=== PATIENT | female | born 1950 | race Caucasian/White ===

== ENCOUNTER 2016-09-27 09:06 | Emergency (ER) | payer OTHER ==
[~2016-09-27] VITALS: Ht 152.4 cm; Wt 71.6 kg
[~2016-09-27 09:06] MED LIST: ALBU1AER9 INH; ASPI81TA28 PO; BIOT5000 PO; CALC-354 PO; CHOL100010 PO; FEXO1TAB49 PO; HYDR-5688 PO; MONT1TAB3 PO; MULT-506 PO; NIAC500T11 PO; POTA10CA28 PO; SPIR1TAB71 PO
[2016-09-27 09:10] VITALS: TEMP 36.6; Ht 152.4 cm; Wt 71.6 kg
[2016-09-27] MEDS ORDERED: BACL10TA PO (09:29)
[2016-09-27] MEDS ORDERED: DOXY20TA3 PO (09:29)
[2016-09-27] MEDS ORDERED: MELO15TA4 PO (09:29)
--- NOTE | 2016-09-27 10:37 | EMERGENCY ROOM VISIT NOTE ---
History Report prepared by Oliverio: Italo Ovalles Under the Supervision of: Dr. Eli Byrd M.D. First contact with patient: 10:23 Chief Complaint: BACK PAIN Stated Complaint: BACK SPASMS History of Present Illness The patient is a 66 year old female who presents to the Emergency Room with complaints of worsening back pain that started this morning. The patient complains of severe back spasms that started when she woke up this morning. She notes that the Morphine given to her by the medics helped relieve some of her pain, but she is still experiencing some discomfort. The patient has a history of chronic back pain and notes that she had a slight disk herniation a few years ago. The patient notes that she is able to ambulate but it causes her significant discomfort. The patient recently had shoulder surgery and a right hip bursitis. She attended physical therapy for her shoulder yesterday, but denies doing any activity that involved her back. She also had a cortisone shot two weeks ago for her hip bursitis which did not relieve her symptoms much. The patient denies numbness, weakness of either LE or loss of control of her bowels/ bladder. Source of History: patient Onset: this morning Position: back Symptom Intensity: severe Quality: other (spasms) Timing: worsening Modifying Factors (Worsening): movement (walking) Associated Symptoms: No numbness Note: Denies: loss of control of bowels or bladder Review of Systems See HPI for pertinent positives & negatives. A total of 10 systems reviewed and were otherwise negative. Past Medical & Surgical Medical Problems: (1) Asthma (2) Celiac Disease (3) Chest pain (4) Chronic Sinusitis Nos (5) Headache (6) Hyperlipidemia Nec/Nos (7) Hypertension Nos (8) Idiopathic Scoliosis (9) Iron Defic Anemia Nos (10) Lumbago (11) Osteoporosis Nos (12) Osteoporosis Nos Surgical Problems: (1) H/O: hysterectomy Family History No pertinent family history Social History Smoking Status: Never Smoker Alcohol Use: none Marital Status: Occupation Status: retired Current/Historical Medications Scheduled Aspirin (Aspirin Ec), 81 MG PO DAILY Baclofen (Lioresal), 10 MG PO PRN Biotin (Biotin/Maximum Strength), 1 TAB PO DAILY Calcium Carbonate-Cholecalcife (Caltrate 600+D), 1 TAB PO BID Doxycycline Hyclate (Doxycycline Hyclate), 20 MG PO BID Meloxicam (Meloxicam), 15 MG PO DAILY Montelukast Sodium (Singulair), 10 MG PO HS Multivitamin (Multivitamin), 1 TAB PO DAILY Niacin (Niacin), 500 MG PO DAILY Potassium Chloride (Micro-K Ext Rel), 20 MEQ PO BID Prednisone (Prednisone), 10 MG PO DAILY Spironolactone & Hydrochloroth (Spironolactone/Hydrochlor), 1 TAB PO DAILY Scheduled PRN Cyclobenzaprine Hcl (Flexeril), 5 MG PO TID PRN for Muscle Spasms Fexofenadine Hcl (Daisy Allergy), 1 TAB PO DAILY PRN for ALLERGIC REACTION Hydrocodone/Acetaminophen 5MG/325MG (Montgomery 5MG/325MG), 1 TABLET PO Q6 PRN for Pain Allergies Coded Allergies: Gluten (Verified Allergy, Unknown, GI SYMPTOMS/CELIAC'S DISEASE, 04/20/15) Latex1 -Allergic Contact Dermititis (Verified Allergy, Unknown, CONTACT DERMITITIS, 04/20/15) Penicillins (Verified Allergy, Unknown, RASH, 04/22/15) Sulfa Drugs (Verified Allergy, Unknown, RASH, 04/22/15) Physical Exam Vital Signs Date Time Temp Pulse Resp B/P Pulse Ox O2 Delivery O2 Flow Rate FiO2 09/27/16 15:14 72 18 132/74 92 09/27/16 14:13 74 16 126/69 92 Room Air 09/27/16 13:26 64 18 135/66 94 Room Air 09/27/16 12:05 61 09/27/16 12:03 61 16 116/63 96 Nasal Cannula 2.0 09/27/16 11:01 71 16 125/68 93 Room Air 09/27/16 09:10 36.6 67 20 146/67 98 Room Air Physical Exam Vital signs reviewed. General: Elderly, well-appearing, in no distress. HEENT: No scleral icterus, PERRLA, neck supple. Atraumatic. Cardiovascular: Regular rate and rhythm, no extra sounds. Pulmonary: Clear to auscultation bilaterally, normal work of breathing. Abdomen: Soft, nontender, nondistended, positive bowel sounds. Musculoskeletal: Atraumatic, no peripheral edema. Palpable spasm of lumbar paraspinous muscles. Pain with movement. No step off deformity of lumbar spine. Equal strength in bilateral lower extremities with positive straight leg raise. Neurologic: Patient awake alert and oriented x 3, full strength in all 4 extremities. Cranial nerves 2 through 12 grossly intact. DTR 2+ bilaterally Skin: Warm, dry, no rash Medical Decision & Procedures ER Provider Diagnostic Interpretation: X-ray results as stated below per interpretation by me and the radiologist: L-SPINE MIN 4 VIEWS ROUTINE CLINICAL HISTORY: lumbar back pain COMPARISON STUDY: Lumbar spine 03/05/2015. FINDINGS: Moderate levoscoliosis of the lumbar spine, unchanged. The sacrum appears intact. Moderate right hip osteoarthritis which is slightly progressed. Moderate to severe disc space narrowing at L2-L3 and L3-L4. There is mild disc space narrowing at L1-L2 and L4-L5. This remains unchanged. Moderate disc space narrowing at T12-L1 which has progressed. There are endplate osteophytes seen throughout the lumbar spine. Vertebral body heights are maintained. No fracture or subluxation. Moderate to severe facet osteoarthritis within the lower lumbar spine is also unchanged. IMPRESSION: 1. Moderate levoscoliosis, unchanged. 2. No fracture or subluxation. 3. Progression of the moderate degenerative disc disease at T12-L1. The remaining degenerative changes within the lumbar spine are not significantly changed as described above. Electronically signed by: Adilson Florence M.D. 09/27/2016 11:41 AM Dictated Date/Time: 09/27/2016 11:[address] ANGIOGRAM OF THE ABDOMEN AND PELVIS CLINICAL HISTORY: Low back pain. COMPARISON STUDY: Abdominal CT dated 03/05/2015. TECHNIQUE: Following the IV administration of 119 cc of Optiray 320, CT angiogram of the abdomen and pelvis was performed from the lung bases the proximal femora. Images are reviewed in the axial, sagittal, and coronal planes. 3-D MIPS images are created and assessed. IV contrast was administered without complication. The examination is degraded by streak artifact from the right arm which could not be elevated above the abdomen. CT DOSE: 660.53 mGy.cm FINDINGS: Lower chest: The heart is normal in size and without pericardial effusion. There is dependent atelectasis. No airspace consolidation or pleural effusion is seen. Liver: The contrast-enhanced liver is normal in size, contour, and attenuation. A 1.6 cm cyst is present in the right lobe. There is no intrahepatic or ductal dilatation. Gallbladder: Unremarkable. Spleen: Normal in size and attenuation noting heterogeneous arterial phase enhancement. Pancreas: There is moderate glandular atrophy of the pancreas. There is a 7 mm ovoid low-density lesion the pancreatic tail seen image #149. This is unchanged from 2015 and likely resent a small sidebranch IPMN. Adrenal glands: Unremarkable. Kidneys: The contrast enhanced kidneys demonstrate cortical atrophy and are without hydronephrosis. The kidneys enhance symmetrically. Abdominal aorta and iliac arteries: The abdominal aorta and iliac vessels are normal in caliber noting moderate atherosclerotic calcification. These vessels are widely patent. No dissection is seen. Major branches of the abdominal aorta: The celiac trunk and superior mesenteric arteries are widely patent. There is likely occlusion at the origin of the inferior mesenteric artery. The remainder of the vessel is patent, likely via retrograde flow. Hepatic arterial anatomy is conventional. The splenic artery is patent. There is a single left renal artery. There are 2 tiny accessory right renal arteries. There is moderate (approximately 50%) stenosis at the origin of the largest right renal artery. Bowel: The small bowel and colon are normal in course and caliber. There is mild to moderate colonic fecal retention. The appendix is well-visualized and normal. Peritoneum: There is no intraperitoneal free air or abdominal ascites. There is a small fat-containing umbilical hernia. Lymphadenopathy: None. Pelvic viscera: The bladder is decompressed and grossly unremarkable. A small focus of intraluminal gas is likely related to indentation. Uterus is surgically absent. No adnexal lesion is seen. Calcified pelvic phleboliths are identified. Skeletal structures: Skeletal structures are osteopenic. There is advanced lumbosacral spondylosis and scoliosis. No lytic or blastic lesions are seen. IMPRESSION: 1. The abdominal aorta is normal in course and caliber. No aneurysm or dissection is seen. 2. There is likely occlusion at the origin of the inferior mesenteric artery. The remainder of the vessel is patent, likely filling via retrograde flow. 3. There is approximately 50% stenosis at the origin of the largest right renal artery. 4. No acute infectious or inflammatory findings are seen in the abdomen or pelvis. 5. A small focus of gas is identified within the bladder lumen, likely related to instrumentation. Clinical correlation will be required. 6. Additional findings as above. Electronically signed by: David Roque M.D. 09/27/2016 2:32 PM Dictated Date/Time: 09/27/2016 2:18 PM Laboratory Results 09/27/16 11:05 Red Blood Count 4.03, Mean Corpuscular Volume 92.3, Mean Corpuscular Hemoglobin 32.3, Mean Corpuscular Hemoglobin Concent 34.9, Mean Platelet Volume 8.4, Neutrophils (%) (Auto) 79.2, Lymphocytes (%) (Auto) 13.0, Monocytes (%) (Auto) 6.4, Eosinophils (%) (Auto) 0.7, Basophils (%) (Auto) 0.5, Neutrophils # (Auto) 8.63, Lymphocytes # (Auto) 1.42, Monocytes # (Auto) 0.70, Eosinophils # (Auto) 0.08, Basophils # (Auto) 0.06 09/27/16 11:05 Test 09/27/16 11:05 09/27/16 13:25 White Blood Count 10.91 K/uL (4.8-10.8) Red Blood Count 4.03 M/uL (4.2-5.4) Hemoglobin 13.0 g/dL (12.0-16.0) Hematocrit 37.2 % (37-47) Mean Corpuscular Volume 92.3 fL (80-100) Mean Corpuscular Hemoglobin 32.3 pg (25-34) Mean Corpuscular Hemoglobin Concent 34.9 g/dl (32-36) Platelet Count 325 K/uL (130-400) Mean Platelet Volume 8.4 fL (7.4-10.4) Neutrophils (%) (Auto) 79.2 % Lymphocytes (%) (Auto) 13.0 % Monocytes (%) (Auto) 6.4 % Eosinophils (%) (Auto) 0.7 % Basophils (%) (Auto) 0.5 % Neutrophils # (Auto) 8.63 K/uL (1.4-6.5) Lymphocytes # (Auto) 1.42 K/uL (1.2-3.4) Monocytes # (Auto) 0.70 K/uL (0.11-0.59) Eosinophils # (Auto) 0.08 K/uL (0-0.5) Basophils # (Auto) 0.06 K/uL (0-0.2) RDW Standard Deviation 44.0 fL (36.4-46.3) RDW Coefficient of Variation 13.0 % (11.5-14.5) Immature Granulocyte % (Auto) 0.2 % Immature Granulocyte # (Auto) 0.02 K/uL (0.00-0.02) Anion Gap 11.0 mmol/L (3-11) Est Creatinine Clear Calc Drug Dose 71.0 ml/min Estimated GFR () 104.7 Estimated GFR (Non- 90.3 BUN/Creatinine Ratio 23.5 (10-20) Calcium Level 8.8 mg/dl (8.5-10.1) Magnesium Level 1.8 mg/dl (1.8-2.4) Total Bilirubin 0.4 mg/dl (0.2-1) Direct Bilirubin < 0.1 mg/dl (0-0.2) Aspartate Amino Transf (AST/SGOT) 11 U/L (15-37) Alanine Aminotransferase (ALT/SGPT) 23 U/L (12-78) Alkaline Phosphatase 81 U/L (45-117) Total Protein 6.7 gm/dl (6.4-8.2) Albumin 3.4 gm/dl (3.4-5.0) Lipase 170 U/L (73-393) Urine Color YELLOW Urine Appearance CLEAR (CLEAR) Urine pH 8.0 (4.5-7.5) Urine Specific Darby 1.013 (1.000-1.030) Urine Protein NEG (NEG) Urine Glucose (UA) NEG (NEG) Urine Ketones NEG (NEG) Urine Occult Blood NEG (NEG) Urine Nitrite POS (NEG) Urine Bilirubin NEG (NEG) Urine Urobilinogen NEG (NEG) Urine Leukocyte Esterase TRACE (NEG) Urine WBC (Auto) 1-5 /hpf (0-5) Urine RBC (Auto) 0-4 /hpf (0-4) Urine Hyaline Casts (Auto) 0 /lpf (0-5) Urine Epithelial Cells (Auto) 5-10 /lpf (0-5) Urine Bacteria (Auto) 4+ (NEG) Date/Time Source Procedure Growth Status 09/27/16 13:25 Urine , Clean Catch Urine Culture - Final Escherichia Coli Complete Laboratory results per my review. Medications Administered Medications (Trade) Dose Ordered Sig/Kierra Route Start Time Stop Time Status Last Admin Dose Admin Sodium Chloride (Nss 1000ml) 1,000 ml @ 125 mls/hr Q8H STAT IV 09/27/16 10:39 09/27/16 16:06 DC 09/27/16 10:57 125 MLS/HR Lorazepam (Ativan Inj) 1 mg NOW STAT IV 09/27/16 10:39 09/27/16 10:42 DC 09/27/16 10:57 1 MG Methylprednisolone Sodium Succinate (Solu-Medrol IV) 125 mg NOW STAT IV 09/27/16 10:39 09/27/16 10:42 DC 09/27/16 10:57 125 MG Morphine Sulfate (MoRPHine SULFATE INJ) 2 mg NOW STAT IV 09/27/16 10:39 09/27/16 10:42 DC 09/27/16 10:58 2 MG Ondansetron HCl (Zofran Inj) 4 mg NOW STAT IV 09/27/16 10:55 09/27/16 10:56 DC 09/27/16 11:01 4 MG Potassium Chloride (Klor-Con M10) 40 meq NOW STAT PO 09/27/16 11:55 09/27/16 11:56 DC 09/27/16 12:00 40 MEQ ED Course 1026: Past medical records reviewed. The patient was evaluated in room B6. A complete history and physical examination was performed. 1039: Ordered Morphine Sulfate 2 mg IV, Solu-Medrol IV 125 mg IV, Ativan Inj 1 mg IV, NSS 1000 ml @ 125 mls/hr IV. 1055: Ordered Zofran Inj 4 mg IV, Klor-Con M10 40 meq PO. 1345: Ordered Ioversol 100 ml IV/Interaction checking. 1445: Upon reevaluation, the patient appeared to have improvement of her symptoms. I discussed findings with her. She verbalized agreement of the treatment plan. The patient was discharged home. Medical Decision Differential diagnosis: Etiologies such as musculoskeletal, disc herniation, fracture, aortic disease, metastatic disease, cord compression, discitis, infection, renal colic, gastrointestinal, acute exacerbation of chronic back pain, sciatica, cauda equina, as well as others were entertained. This pt was evaluated and appeared to be in some discomfort. IV access was obtained and lab work was drawn. PT was hydrated with NSS, given IV ativan, solumedral and morphine. She had taken baclofen [employer]. XR were performed and reveal a chronic moderate levoscoliosis. On reevaluation pt continued to have pain. She stated her sister has a AAA and she is concerned that her pain maybe related to a AAA. Pt pain is seemingly unprovoked and localized. A CTA of abdomen was performed and is negative for AAA. The findings are concerning for likely occlusion at the origin of the inferior mesenteric artery. The remainder of the vessel is patent, likely filling via retrograde flow. There is approximately 50% stenosis at the origin of the largest right renal artery. The left renal artery has a duplicate. This does not seem to be urgent or r/t pt's presentation. She was placed on prednisone and will use her baclofen at home. Pt stated her insurance will not cover flexeril that was prescribed. She will f/u with PCP this week and return to the ED for worsening of symptoms or any medical concerns. 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 I confirm that the note above accurately reflects all work, treatment, procedures, and medical decision making performed by me. Departure Information Dispostion Home / Self-Care Prescriptions Hydrocodone/Acetaminophen 5MG/325MG (Montgomery 5MG/325MG) Tab 1 TABLET PO Q6 Y for Pain, #20 TAB Prov: Eli Byrd M.D. 09/27/16 Cyclobenzaprine Hcl (FLEXERIL) 5 Mg Tab 5 MG PO TID Y for Muscle Spasms, #21 TAB Prov: Eli Byrd M.D. 09/27/16 Prednisone (Prednisone) 10 Mg Tab 10 MG PO DAILY, #31 TAB Prov: Eli Byrd M.D. 09/27/16 Referrals Jed Kramer M.D. (PCP) Forms HOME CARE DOCUMENTATION FORM, IMPORTANT VISIT INFORMATION Patient Instructions [facility] Additional Instructions Diagnosis: Lumbar back spasm Prednisone 40 mg for 4 days, 30 mg for 3 days, 20 Motrin grams for 2 days, 10 mg for 2 days Flexeril 5 mg 3 days daily as needed for muscular spasm. Montgomery one tablet every 4 hours as needed for severe pain. Do not drive or take Tylenol with this medication. Warm compresses and gentle stretching. Follow-up with your physician for reevaluation this week. Return to the ER for worsening of symptoms or any medical concerns. Problem Qualifiers
[2016-09-27] MEDS ORDERED: LORAZEPAM 2 MG/ML 1 ML VIAL IV STA (10:39)
[2016-09-27] MEDS ORDERED: METHYLPREDNISOLONE 125 MG VIAL IV STA (10:39)
[2016-09-27] MEDS ORDERED: SODIUM CHLORIDE 0.9% 1000ML 1,000 ML IV STA (10:39)
[2016-09-27] MEDS ORDERED: MoRPHine SULFATE 2 MG/ML CARP IV STA (10:39)
[2016-09-27] MEDS ORDERED: ONDANSETRON INJ 2 MG/ML 2 ML VIAL IV STA (10:55)
[2016-09-27 11:16] LABS: BASO % 0.5 %; BASO ABS # 0.06 K/uL (0-0.2); COMPLETE YES; EOS % 0.7 %; HEMATOCRIT 37.2 % (37-47); IG% 0.2 %; LYMPH ABS # 1.42 K/uL (1.2-3.4); MEAN CELL VOLUME 92.3 fL (80-100); MEAN CORPUSCULAR HEMOGLOBIN 32.3 pg (25-34); MEAN CORPUSCULAR HGB CONC 34.9 g/dl (32-36); MEAN PLATELET VOLUME 8.4 fL (7.4-10.4); MONO % 6.4 %; NEUT % 79.2 %; PLATELET COUNT 325 K/uL (130-400); RED BLOOD COUNT 4.03 M/uL (4.2-5.4); WHITE BLOOD COUNT 10.91 K/uL (4.8-10.8)
[2016-09-27 11:28] LABS: ALT/SGPT 23 U/L (12-78); AST/SGOT 11 U/L (15-37); BLOOD UREA NITROGEN 16 mg/dl (7-18); BUN/CREATININE RATIO 23.5 (10-20); CALCIUM 8.8 mg/dl (8.5-10.1); CARBON DIOXIDE 25 mmol/L (21-32); CHLORIDE 103 mmol/L (98-107); CREATININE 0.67 mg/dl (0.60-1.20); GLUCOSE 108 mg/dl (70-99); MAGNESIUM 1.8 mg/dl (1.8-2.4); POTASSIUM 3.1 mmol/L (3.5-5.1); SODIUM 139 mmol/L (136-145)
[2016-09-27 11:31] LABS: ALKALINE PHOSPHATASE 81 U/L (45-117)
--- NOTE | 2016-09-27 11:43 | DIAGNOSTIC IMAGING REPORT ---
L-SPINE MIN 4 VIEWS ROUTINE CLINICAL HISTORY: lumbar back pain COMPARISON STUDY: Lumbar spine 03/05/2015. FINDINGS: Moderate levoscoliosis of the lumbar spine, unchanged. The sacrum appears intact. Moderate right hip osteoarthritis which is slightly progressed. Moderate to severe disc space narrowing at L2-L3 and L3-L4. There is mild disc space narrowing at L1-L2 and L4-L5. This remains unchanged. Moderate disc space narrowing at T12-L1 which has progressed. There are endplate osteophytes seen throughout the lumbar spine. Vertebral body heights are maintained. No fracture or subluxation. Moderate to severe facet osteoarthritis within the lower lumbar spine is also unchanged. IMPRESSION: 1. Moderate levoscoliosis, unchanged. 2. No fracture or subluxation. 3. Progression of the moderate degenerative disc disease at T12-L1. The remaining degenerative changes within the lumbar spine are not significantly changed as described above. Electronically signed by: Adilson Florence M.D. 09/27/2016 11:41 AM Dictated Date/Time: 09/27/2016 11:38 AM
[2016-09-27] MEDS ORDERED: POTASSIUM CHLORIDE 10 MEQ TABCR PO STA (11:55)
[2016-09-27 13:44] LABS: URINE APPEARANCE CLEAR (CLEAR); URINE BILIRUBIN NEG (NEG); URINE COLOR YELLOW; URINE NITRITE POS (NEG); URINE SPECIFIC GRAVITY 1.013 (1.000-1.030); UROBILINOGEN NEG (NEG); ZZUR CULT IF INDIC CLEAN CATCH YES
[2016-09-27] MEDS ORDERED: OPTIRAY 320 IV PRN (13:45)
[2016-09-27 13:57] LABS: MANUAL MICROSCOPIC REQUIRED? NO; REVIEW REQ? NO
[2016-09-27] MEDS ORDERED: HYDR-5688 PO (14:24)
[2016-09-27] MEDS ORDERED: PRED10TA PO (14:24)
[2016-09-27] MEDS ORDERED: CYCL5TAB PO (14:24)
--- NOTE | 2016-09-27 14:34 | DIAGNOSTIC IMAGING REPORT ---
CT ANGIOGRAM OF THE ABDOMEN AND PELVIS CLINICAL HISTORY: Low back pain. COMPARISON STUDY: Abdominal CT dated 03/05/2015. TECHNIQUE: Following the IV administration of 119 cc of Optiray 320, CT angiogram of the abdomen and pelvis was performed from the lung bases the proximal femora. Images are reviewed in the axial, sagittal, and coronal planes. 3-D MIPS images are created and assessed. IV contrast was administered without complication. The examination is degraded by streak artifact from the right arm which could not be elevated above the abdomen. CT DOSE: 660.53 mGy.cm FINDINGS: Lower chest: The heart is normal in size and without pericardial effusion. There is dependent atelectasis. No airspace consolidation or pleural effusion is seen. Liver: The contrast-enhanced liver is normal in size, contour, and attenuation. A 1.6 cm cyst is present in the right lobe. There is no intrahepatic or ductal dilatation. Gallbladder: Unremarkable. Spleen: Normal in size and attenuation noting heterogeneous arterial phase enhancement. Pancreas: There is moderate glandular atrophy of the pancreas. There is a 7 mm ovoid low-density lesion the pancreatic tail seen image #149. This is unchanged from 2015 and likely resent a small sidebranch IPMN. Adrenal glands: Unremarkable. Kidneys: The contrast enhanced kidneys demonstrate cortical atrophy and are without hydronephrosis. The kidneys enhance symmetrically. Abdominal aorta and iliac arteries: The abdominal aorta and iliac vessels are normal in caliber noting moderate atherosclerotic calcification. These vessels are widely patent. No dissection is seen. Major branches of the abdominal aorta: The celiac trunk and superior mesenteric arteries are widely patent. There is likely occlusion at the origin of the inferior mesenteric artery. The remainder of the vessel is patent, likely via retrograde flow. Hepatic arterial anatomy is conventional. The splenic artery is patent. There is a single left renal artery. There are 2 tiny accessory right renal arteries. There is moderate (approximately 50%) stenosis at the origin of the largest right renal artery. Bowel: The small bowel and colon are normal in course and caliber. There is mild to moderate colonic fecal retention. The appendix is well-visualized and normal. Peritoneum: There is no intraperitoneal free air or abdominal ascites. There is a small fat-containing umbilical hernia. Lymphadenopathy: None. Pelvic viscera: The bladder is decompressed and grossly unremarkable. A small focus of intraluminal gas is likely related to indentation. Uterus is surgically absent. No adnexal lesion is seen. Calcified pelvic phleboliths are identified. Skeletal structures: Skeletal structures are osteopenic. There is advanced lumbosacral spondylosis and scoliosis. No lytic or blastic lesions are seen. IMPRESSION: 1. The abdominal aorta is normal in course and caliber. No aneurysm or dissection is seen. 2. There is likely occlusion at the origin of the inferior mesenteric artery. The remainder of the vessel is patent, likely filling via retrograde flow. 3. There is approximately 50% stenosis at the origin of the largest right renal artery. 4. No acute infectious or inflammatory findings are seen in the abdomen or pelvis. 5. A small focus of gas is identified within the bladder lumen, likely related to instrumentation. Clinical correlation will be required. 6. Additional findings as above. Electronically signed by: David Roque M.D. 09/27/2016 2:32 PM Dictated Date/Time: 09/27/2016 2:18 PM
[2016-09-27 15:14] VITALS: BP 132/74; PULSE 72; O2SAT 92
--- NOTE | 2016-09-29 16:32 | Pharmacy Progress Note ---
ED Pharmacist Culture FollowUp Date of Service: Sep 29, 2016. Patient's urine culture from 09/27/16 is growing E coli. Although the patient did not specifically c/o urinary symptoms while being evaluated in the ED on the date of her visit, she is now c/o of dysuria/burning on urination. Dr Byrd has asked that the patient be placed on Cipro 500mg PO BID x 7 days. I spoke with the patient to determine which pharmacy she would like the Rx called to, she asked it be sent to [facility] ([phone]), I called the Rx directly to the pharmacist per her request as she was already in the [facility] store.
[2017-03-16] MEDS ORDERED: CHOL100027 PO (13:29)
[2017-03-16] MEDS ORDERED: IBUP-1050 PO (13:29)
[2017-03-16] MEDS ORDERED: DIPH25CA65 PO (13:29)
[2017-03-16] MEDS ORDERED: NAPR1TAB9 PO (13:29)
[2017-03-16] MEDS ORDERED: ACET-1256 PO (13:29)
[2017-03-16] MEDS ORDERED: CYAN500T13 PO (13:29)
[2017-03-16] MEDS ORDERED: RANI150T3 PO (13:29)
[2017-03-16] MEDS ORDERED: OMEG10007 PO (13:29)
[2017-03-16] MEDS ORDERED: VNTHFA/IN INH (13:29)
== END 2016-09-27 15:21 | disposition home or self-care (01) ==
LOC: EDBD 09:06 → C.EDB 09:07
DX: M62.830 Muscle spasm of back (principal); I70.1 Atherosclerosis of renal artery; K55.1 Chronic vascular disorders of intestine; K42.9 Umbilical hernia without obstruction or gangrene; J45.909 Unspecified asthma, uncomplicated; K86.2 Cyst of pancreas; E78.5 Hyperlipidemia, unspecified; M41.20 Other idiopathic scoliosis, site unspecified; M81.0 Age-related osteoporosis without current pathological fracture; I10 Essential (primary) hypertension; M16.11 Unilateral primary osteoarthritis, right hip; M47.896 Other spondylosis, lumbar region; M47.817 Spondylosis without myelopathy or radiculopathy, lumbosacral region; D50.9 Iron deficiency anemia, unspecified

== ENCOUNTER → 2016-10-09 | Outpatient (CLI) | payer OTHER ==
[~2016-10-09] MED LIST changes: +ACET-1256 PO; +ACET-24 PO; -ALBU1AER9 INH; +ASPEC81 PO; +BACL10TA PO; -CHOL100010 PO; +CHOL100027 PO; +CYAN500T13 PO; +DIPH25CA65 PO; +DOXY20TA3 PO; +IBUP-1050 PO; +MELO15TA4 PO; +NAPR1TAB9 PO; +OMEG10007 PO; +PRED10TA PO; +RANI150T3 PO; +RXC5 PO; +SNK PO; +VNTHFA/IN INH
[2016-10-09 15:14] LABS: BLOOD UREA NITROGEN 21 mg/dl (7-18); BUN/CREATININE RATIO 22.9 (10-20); CALCIUM 8.8 mg/dl (8.5-10.1); CARBON DIOXIDE 29 mmol/L (21-32); CHLORIDE 99 mmol/L (98-107); GLUCOSE 84 mg/dl (70-99); POTASSIUM 3.7 mmol/L (3.5-5.1); SODIUM 138 mmol/L (136-145)
== END | disposition home or self-care (01) ==
LOC: C.LABSPEC 14:48
PROVIDERS: ATTEND Internal Medicine
DX: E87.6 Hypokalemia (principal); N39.0 Urinary tract infection, site not specified

== ENCOUNTER → 2016-12-01 | Outpatient (CLI) | payer OTHER ==
[~2016-12-01] MED LIST changes: +CHOL1TAB52 PO; +CLAR500T34 PO; +IBUP-1459 PO; +METH4PAK PO; +MISCCAP46 PO
[2016-12-01 13:34] LABS: BLOOD UREA NITROGEN 21 mg/dl (7-18); BUN/CREATININE RATIO 28.9 (10-20); CALCIUM 9.5 mg/dl (8.5-10.1); CARBON DIOXIDE 28 mmol/L (21-32); CHLORIDE 102 mmol/L (98-107); CREATININE 0.72 mg/dl (0.60-1.20); GLUCOSE 108 mg/dl (70-99); POTASSIUM 3.3 mmol/L (3.5-5.1); SODIUM 140 mmol/L (136-145)
== END | disposition home or self-care (01) ==
LOC: C.LABSPEC 12:34
PROVIDERS: ATTEND Internal Medicine
DX: E87.6 Hypokalemia (principal)

== ENCOUNTER → 2017-02-12 | Outpatient (CLI) | payer OTHER ==
--- NOTE | 2017-02-12 16:13 | DIAGNOSTIC IMAGING REPORT ---
ULTRASOUND VENOUS DOPPLER LWR EXT BILA CLINICAL HISTORY: Bilateral leg edema COMPARISON STUDY: No previous studies for comparison. FINDINGS: Real-time and color flow Doppler imaging were performed. Flow was seen within the femoral, popliteal and calf veins with no intraluminal thrombus demonstrated. The saphenous vein is patent. IMPRESSION: No evidence of lower extremity DVT. Electronically signed by: Tono Be M.D. 02/12/2017 4:11 PM Dictated Date/Time: 02/12/2017 4:11 PM
== END | disposition home or self-care (01) ==
LOC: C.ULTR 15:20
PROVIDERS: ATTEND Internal Medicine
DX: R60.9 Edema, unspecified (principal)

== ENCOUNTER → 2017-02-12 | Outpatient (CLI) | payer OTHER ==
[2017-02-12 16:25] LABS: ALT/SGPT 25 U/L (12-78); BLOOD UREA NITROGEN 17 mg/dl (7-18); BUN/CREATININE RATIO 20.5 (10-20); CARBON DIOXIDE 29 mmol/L (21-32); CHLORIDE 103 mmol/L (98-107); CREATININE 0.82 mg/dl (0.60-1.20); GLUCOSE 91 mg/dl (70-99); POTASSIUM 3.8 mmol/L (3.5-5.1); SODIUM 140 mmol/L (136-145)
[2017-02-12 16:28] LABS: ALKALINE PHOSPHATASE 62 U/L (45-117); AST/SGOT 21 U/L (15-37)
[2017-02-12 16:44] LABS: CALCIUM 9.7 mg/dl (8.5-10.1)
== END | disposition home or self-care (01) ==
LOC: C.LABSPEC 15:01
PROVIDERS: ATTEND Internal Medicine
DX: R60.9 Edema, unspecified (principal)

== ENCOUNTER → 2017-03-30 | Outpatient (CLI) | payer OTHER ==
[~2017-03-30] MED LIST changes: -CHOL1TAB52 PO; -CLAR500T34 PO; -HYDR-5688 PO; -IBUP-1459 PO; -MELO15TA4 PO; -METH4PAK PO; -MISCCAP46 PO; -PRED10TA PO
[2017-03-30 13:40] LABS: URINE APPEARANCE CLEAR (CLEAR); URINE BILIRUBIN NEG (NEG); URINE COLOR YELLOW; URINE EPITHELIAL CELL AUTO 0-5 /lpf (0-5); URINE NITRITE NEG (NEG); UROBILINOGEN NEG (NEG)
[2017-03-30 13:41] LABS: MANUAL MICROSCOPIC REQUIRED? NO; REVIEW REQ? NO
== END | disposition home or self-care (01) ==
LOC: C.LABBC 10:22
PROVIDERS: ATTEND Internal Medicine
DX: N39.0 Urinary tract infection, site not specified (principal)

== ENCOUNTER → 2017-04-02 | Outpatient (CLI) | payer OTHER | END | disposition home or self-care (01) | LOC: C.LABPVFM 13:37 | PROVIDERS: ATTEND Internal Medicine | DX: N39.0 Urinary tract infection, site not specified (principal) ==

== ENCOUNTER 2017-04-11 05:19 | Inpatient (IN) | payer OTHER ==
[2017-03-16 13:30] VITALS: BMI 28.0
--- NOTE | 2017-03-16 14:03 | PAT Medication Instructions ---
Service Date Mar 16, 2017. Current Home Medication List Acetaminophen (Tylenol), 1-2 TAB PO Q8 PRN for PAIN Albuterol Hfa (Ventolin Hfa), 2 PUFFS INH UD PRN for ASTHMA Aspirin (Aspirin Ec), 81 MG PO HS Baclofen (Lioresal), 10 MG PO PRN Biotin (Biotin/Maximum Strength), 1 TAB PO QAM Calcium Carbonate-Cholecalcife (Caltrate 600+D), 1 TAB PO BID Cholecalciferol (Vitamin D 1000 Unit), 5,000 INTER.UNIT PO QDD Cyanocobalamin (Vitamin B12 500MCG), 2,500 MCG PO QAM Diphenhydramine Hcl (Benadryl Allergy), 1 CAP PO HS Doxycycline Hyclate (Doxycycline Hyclate), 50 MG PO QAM Fexofenadine Hcl (Daisy Allergy), 1 TAB PO DAILY PRN for ALLERGIC REACTION Fish Oil (Baldwin-3), 1,400 MG PO QPM Ibuprofen (Advil), 200-800 MG PO UD PRN for Pain Montelukast Sodium (Singulair), 10 MG PO HS Multivitamin (Multivitamin), 1 TAB PO QAM Naproxen (Aleve), 2 TAB PO UD PRN for Pain Niacin (Niacin), 500 MG PO QDD Potassium Chloride (Micro-K Ext Rel), 30 MEQ PO BID Ranitidine Hcl (Zantac), 150 MG PO UD PRN for ACID REFLUX Spironolactone & Hydrochloroth (Spironolactone/Hydrochlor), 1 TAB PO BID Medication Instructions For Your Scheduled Surgery - Check with surgeon for instructions: Ibuprofen (Advil), 200-800 MG PO UD PRN for Pain Naproxen (Aleve), 2 TAB PO UD PRN for Pain - Hold the following medications 2 weeks prior to surgery: Fish Oil (Baldwin-3), 1,400 MG PO QPM - Hold the following medications the morning of surgery: Spironolactone & Hydrochloroth (Spironolactone/Hydrochlor), 1 TAB PO BID Ranitidine Hcl (Zantac), 150 MG PO UD PRN for ACID REFLUX Potassium Chloride (Micro-K Ext Rel), 30 MEQ PO BID Multivitamin (Multivitamin), 1 TAB PO QAM Fexofenadine Hcl (Daisy Allergy), 1 TAB PO DAILY PRN for ALLERGIC REACTION Cyanocobalamin (Vitamin B12 500MCG), 2,500 MCG PO QAM Calcium Carbonate-Cholecalcife (Caltrate 600+D), 1 TAB PO BID Baclofen (Lioresal), 10 MG PO PRN Biotin (Biotin/Maximum Strength), 1 TAB PO QAM - Take the following medications the morning of surgery with a sip of water: Doxycycline Hyclate (Doxycycline Hyclate), 50 MG PO QAM Acetaminophen (Tylenol), 1-2 TAB PO Q8 PRN for PAIN (if needed) Albuterol Hfa (Ventolin Hfa), 2 PUFFS INH UD PRN for ASTHMA (use if needed; bring with you to hospital morning of surgery) - Hold the following medications as scheduled the night before surgery: Niacin (Niacin), 500 MG PO QDD - Take the following medications as scheduled the night before surgery: Spironolactone & Hydrochloroth (Spironolactone/Hydrochlor), 1 TAB PO BID Ranitidine Hcl (Zantac), 150 MG PO UD PRN for ACID REFLUX (if needed) Potassium Chloride (Micro-K Ext Rel), 30 MEQ PO BID Montelukast Sodium (Singulair), 10 MG PO HS Fexofenadine Hcl (Daisy Allergy), 1 TAB PO DAILY PRN for ALLERGIC REACTION ( if needed) Diphenhydramine Hcl (Benadryl Allergy), 1 CAP PO HS Calcium Carbonate-Cholecalcife (Caltrate 600+D), 1 TAB PO BID Cholecalciferol (Vitamin D 1000 Unit), 5,000 INTER.UNIT PO QDD Baclofen (Lioresal), 10 MG PO PRN Aspirin (Aspirin Ec), 81 MG PO HS Acetaminophen (Tylenol), 1-2 TAB PO Q8 PRN for PAIN (if needed) Albuterol Hfa (Ventolin Hfa), 2 PUFFS INH UD PRN for ASTHMA (if needed) If you have any questions please call us at [phone] or [phone] or [phone]
[2017-03-16 14:33] LABS: URINE APPEARANCE CLEAR (CLEAR); URINE BILIRUBIN NEG (NEG); URINE COLOR YELLOW; URINE EPITHELIAL CELL AUTO 0-5 /lpf (0-5); URINE NITRITE NEG (NEG); URINE SPECIFIC GRAVITY 1.013 (1.000-1.030); UROBILINOGEN NEG (NEG); ZZUR CULT IF INDIC CLEAN CATCH YES
[2017-03-16 14:40] LABS: INR 0.9 (0.9-1.1)
[2017-03-16 14:46] LABS: MANUAL MICROSCOPIC REQUIRED? NO; REVIEW REQ? NO
[2017-03-16 14:48] LABS: BASO % 1.1 %; BASO ABS # 0.08 K/uL (0-0.2); COMPLETE YES; EOS % 1.5 %; HEMATOCRIT 38.5 % (37-47); IG% 0.3 %; LYMPH ABS # 1.49 K/uL (1.2-3.4); MEAN CELL VOLUME 91.9 fL (80-100); MEAN CORPUSCULAR HGB CONC 33.8 g/dl (32-36); MEAN PLATELET VOLUME 8.4 fL (7.4-10.4); MONO % 5.9 %; NEUT % 70.2 %; PLATELET COUNT 357 K/uL (130-400); RED BLOOD COUNT 4.19 M/uL (4.2-5.4)
--- NOTE | 2017-03-16 14:52 | DIAGNOSTIC IMAGING REPORT ---
CHEST 2 VIEWS ROUTINE CLINICAL HISTORY: pat preoperative evaluation COMPARISON STUDY: 02/04/2014 FINDINGS: The bones soft tissues and hemidiaphragms are normal. The cardiomediastinal silhouette is normal. The lungs are clear. The pulmonary vasculature is normal. IMPRESSION: Negative chest. The above report was generated using voice recognition software. It may contain grammatical, syntax or spelling errors. Electronically signed by: Enoch Hancock M.D. 03/16/2017 2:51 PM Dictated Date/Time: 03/16/2017 2:50 PM
[2017-03-16 15:25] LABS: BUN/CREATININE RATIO 17.3 (10-20); CALCIUM 10.1 mg/dl (8.5-10.1); CREATININE 0.74 mg/dl (0.60-1.20); POTASSIUM 4.3 mmol/L (3.5-5.1)
[2017-03-17 07:16] LABS: ESTIMATED AVERAGE GLUCOSE 117 mg/dl; HA1C FLAG Normal (Normal)
--- NOTE | 2017-04-09 07:53 | Medical Consult ---
Consultation Note Date of Service Apr 09, 2017. Consultation Note 66-year-old female scheduled to undergo a right total hip arthroplasty on 04/11/2017 Her medical problems include: * celiac disease which seems to be in remission * Hypercholesterolemia * Osteopenia * Environmental allergies * Ocular rosacea * Recurrent low back pain with levoscoliosis * Urinary tract infection * Status post pale for cystocele in 1994 and 2015 * Right shoulder surgery for biceps tear on 08/07/2016 Her current medications include: * potassium chloride 20 mEq 3 times a day * Vitamin C 1000 mg daily * Vitamin D 5000 international unit daily * Multivitamin one daily * Aspirin 81 mg daily * Biotin one daily * Fish oil 1400 mg daily * Niacin 500 mg daily * Singulair 10 mg daily * Spironolactone/HCTZ 25/25 one tablet twice a day * Albuterol inhaler 2 puffs 4 times a day as needed Patient was seen in the office. All her preoperative tests will review. She had a urinary tract infection. Culture grew Proteus mirabilis. On 04/04/2017 she was started on cephalexin. Prior to that she was treated with a course of Macrobid. Overall she is doing one. She denied any headache or dizziness or lightheadedness. No earache sore throat or neck pain. Denied any chest pain. No shortness of breath. No abdominal pain. No nausea no vomiting. She does have recurrent back pain. She does have recurrent edema of her legs. Denied any urinary problem. No problem with her bowel movements. She is . She is retired. 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 She does not smoke. ALLERGIES: She has multiple allergies all listed. She is on a gluten-free diet because of her celiac disease. Her listed allergies including penicillin, sulfa , ciprofloxacin, codeine, latex, meperidine. EXAMINATION: General : Well developed, well nourished, in no distress.Weight 66.1 kg. Height 152.4 cm. BMI 28.5. Vital Signs : BP : 138/60 Pulse : 76 Temperature :98.6 Skin : Warm and dry. No Rash. HEENT:She wears glasses. No mucosal abnormalities in her nose mouth or throat. Ears are normal. Neck : Supple. Nontender. No adenopathy. No thyromegaly. No JVD. Normal carotid pulses. No carotid bruit. Heart : Regular heart sounds. No murmur rub or gallop. PMI is not displaced. Lungs : Clear. Normal breath sounds. Abdomen : Soft nontender. No organomegaly or masses. Active bowel sounds. No hernia. Back : chronic low back pain Extremities : No edema clubbing or cyanosis. osteoarthritic changes. Right hip pain. Good peripheral pulses except for an absent left dorsalis pedis pulse. Neurological Examination : Alert and oriented. No evidence of any lateralized deficit. No cranial nerve abnormalities. Her preoperative tests were all review. ASSESSMENT: * severe osteoarthritis of the right hip. Patient is scheduled to undergo surgery on 04/11/2017 * Celiac disease * Urinary tract infection * Environmental allergies * Low back pain * Bilateral leg edema. * Hyperlipidemia PLAN: * As noted above she is being treated for urinary tract infection * She is continuing her medications * Her condition is stable. There is no contraindication to her anticipated surgery.
--- NOTE | 2017-04-10 21:35 | HISTORY & PHYSICAL EXAMINATION ---
DATE OF ADMISSION: 04/11/2017 ADMISSION HISTORY AND PHYSICAL CHIEF COMPLAINT: Chronic right hip pain. HISTORY OF PRESENT ILLNESS: This is a 66-year-old female patient of Dr. Silver'tessie complaining of chronic right hip pain, longstanding, now progressively getting worse. The patient has failed conservative treatment including anti-inflammatories, Tylenol, intra-articular injections and the use of a cane and a walker for at least 6 weeks. The patient has increased pain with weightbearing activities and her pain does interfere with her activities of daily living. PAST MEDICAL HISTORY: Hypertension, hypercholesterolemia, asthma, osteoarthritis, spine problems, sciatica, kidney stones, skin cancer, and acid reflux. SOCIAL HISTORY: Nonsmoker, occasional drinker. PAST SURGICAL HISTORY: Right bunionectomy, cystocele repair, nasal septal repair, hysterectomy, umbilical repair, shoulder repair, removal of skin cancer. FAMILY HISTORY: Noncontributory. REVIEW OF SYSTEMS: The patient complains of chronic right hip pain. Otherwise, denies any shortness of breath, chest pain, nausea, vomiting or any other joint complaints. MEDICATIONS: Include Spironolactone/hydrochlorothiazide 25/25 b.i.d., potassium chloride 10 mEq 2 tablets b.i.d., Singulair 10 mg daily, albuterol inhaler 17 grams p.r.n., calcium 600 plus D b.i.d., niacin 500 mg daily, vitamin C daily, vitamin D daily, multivitamin daily, aspirin 81 mg daily, vitamin B12 2500 mcg sublingual daily, biotin, Daisy as needed, fish oil, doxycycline 50 mg b.i.d., Meloxicam 50 mg p.r.n., ranitidine 150 mg p.r.n.; Benadryl, Tylenol, ibuprofen and Aleve all p.r.n. ALLERGIES: SULFA, PENICILLIN, LATEX AND FLUOROQUINOLONES. PHYSICAL EXAMINATION: GENERAL: Well-developed, well-nourished 66-year-old female in no acute distress. She is alert and oriented x3 and pleasant. HEENT: Normocephalic, atraumatic. Extraocular motions are intact. Pupils are equal and reactive to light. HEART: Regular rate and rhythm, no murmurs appreciated. LUNGS: Clear. ABDOMEN: Soft, nontender, bowel sounds present. EXTREMITIES: Right hip reveals passive range of motion to be painful with log rolling and internal and external rotation at 90/90. She has pain into her groin and her anterior thigh. She has no flexion contracture. NEUROLOGIC: Neurovascularly, she is intact in her right lower extremity. DIAGNOSES: Right hip end-stage osteoarthritis with a history of hypertension, hypercholesterolemia, asthma, osteoarthritis, spine problems, sciatica, kidney stones, acid reflux, and skin cancer. PLAN: The patient was advised of her diagnosis. Indications, risks, benefits, postop course have all been reviewed. The patient wishes to proceed with a right total hip arthroplasty. Necessary consent forms, preoperative testing and clearances will be obtained.
[2017-04-11] VITALS (9 sets, daily range): BP systolic 109–145; BP diastolic 62–77; PULSE 61–85; TEMP 36.2–36.6; O2SAT 95–99; Ht 152.4 cm; Wt 63.7 kg
[~2017-04-11] VITALS: Ht 152.4 cm; Wt 63.7 kg
[~2017-04-11 05:19] MED LIST changes: -ACET-24 PO; -ASPEC81 PO; -RXC5 PO; -SNK PO
[2017-04-11] MEDS ORDERED: FAMOTIDINE 20 MG TAB PO SCH (06:00)
[2017-04-11] MEDS ORDERED: METOCLOPRAMIDE HCL 10 MG TAB PO SCH (06:00)
[2017-04-11] MEDS ORDERED: GABAPENTIN 300 MG CAP PO SCH (06:00)
[2017-04-11] MEDS ORDERED: ACETAMINOPHEN 500 MG TAB PO SCH (06:00)
[2017-04-11] MEDS ORDERED: VANCOMYCIN 1GM/270ML NSS IV SCH (06:00)
[2017-04-11] MEDS ORDERED: DEXAMETHASONE 4 MG TAB PO SCH (06:00)
[2017-04-11] MEDS ORDERED: ROPIVACAINE 5MG/ML 30 ML 150 MG, BUPIVACAINE/EPINEPHR 0.5% MPF 30 ML, KETOROLAC TROMETH... INFIL SCH ×6 (06:00)
[2017-04-11] MEDS ORDERED: LACTATED RINGER'S 1000ML 1,000 ML IV SCH ×2 (06:00)
[2017-04-11] MEDS ORDERED: LACTATED RINGER'S 1000ML 500 ML IV ONE (06:00)
[2017-04-11] MEDS ORDERED: VANCOMYCIN INJ 1,000 MG in SODIUM CHLORIDE 0.9% 250ML 250 ML IV SCH ×2 (06:00→18:00)
[2017-04-11] MEDS: TRANEXAMIC ACID INJ 1,000 MG in SODIUM CHLORIDE 0.9% 100ML 100 ML IV SCH ×2 (06:13→07:12)
[2017-04-11] MEDS ORDERED: BUPIVACAINE 0.5 % 5 MG/1 ML PF 10ML VIAL ONE (06:23)
[2017-04-11] MEDS ORDERED: ORTHO JOINT ANESTHETIC ONE (06:56)
[2017-04-11] MEDS ORDERED: POVIDONE-IODINE OP SOLN 30 ML BTL ONE (06:57)
[2017-04-11] MEDS ORDERED: BACITRACIN 50000 UNIT VIAL ONE (06:57)
[2017-04-11] MEDS ORDERED: MIDAZOLAM HCL 1 MG/ML 2ML VIAL ONE ×2 (07:19→07:58)
[2017-04-11] MEDS ORDERED: FENTANYL CITRATE INJ 50 MCG/1 ML 2 ML VIAL ONE (07:19)
--- NOTE | 2017-04-11 07:25 | History & Physical Bridge Note ---
H&P Re-Evaluation Bridge Note: I have examined the patient, reviewed the History & Physical and in the interval since the performance of the History & Physical I have noted the following changes of clinical significance: No changes noted
[2017-04-11] MEDS ORDERED: FENTANYL CITRATE INJ 50 MCG/1 ML 2 ML VIAL IV PRN (07:45)
[2017-04-11] MEDS ORDERED: ONDANSETRON INJ 2 MG/ML 2 ML VIAL IV PRN ×2 (07:45→10:15)
[2017-04-11] MEDS ORDERED: EpHEDrine SULFATE INJ 50 MG/ML AMP IV PRN (07:45)
[2017-04-11] MEDS ORDERED: ATROPINE SULFATE 0.1 MG/ML 5ML SYR IV PRN (07:45)
[2017-04-11] MEDS ORDERED: PROPOFOL IV EMULSION 10 MG/ML 20 ML VIAL IV ONE (07:50)
[2017-04-11] MEDS ORDERED: LIDOCAINE HCL 2% 2 ML VIAL (20MG/ML) ONE (07:50)
[2017-04-11] MEDS ORDERED: PHENYLEPHRINE 100MCG/ML 5ML SYR ONE (08:36)
--- NOTE | 2017-04-11 09:51 | [facility] Post Operative Brief Note ---
Immediate Operative Summary Operative Date Apr 11, 2017. Pre-Operative Diagnosis Right hip end-stage osteoarthritis Post-Operative Diagnosis Right hip end-stage osteoarthritis Procedure(s) Performed Right Hip total arthroplasty Surgeon Dr. Reno Silver Housekeeping Coordinator Surgeon(s) Stan Pantoja-BANDAR Estimated Blood Loss 200ML Findings severe djd oa superior lateral subluxation with bone loss Specimens A: Right Femoral Head Drains 2 hemovac Anesthesia spinal orthomix Complication(s) None Disposition Recovery Room / PACU
[2017-04-11] MEDS ORDERED: MoRPHine SULFATE 2 MG/ML CARP IV PRN (10:15)
[2017-04-11] MEDS ORDERED: BISACODYL 10 MG SUPP PR PRN (10:15)
[2017-04-11] MEDS ORDERED: MoRPHine SULFATE 4 MG/ML 1 ML CARP\\VIAL IV PRN (10:15)
[2017-04-11] MEDS ORDERED: FEXOFENADINE HCL 180 MG TAB PO PRN (10:15)
[2017-04-11] MEDS ORDERED: ALUMINUM/MAGNESIUM/SIMETH (MAALOX MAX) 30 ML UDC PO PRN (10:15)
[2017-04-11] MEDS ORDERED: MAGNESIUM HYDROXIDE SUSP 30 ML UDC PO PRN (10:15)
--- NOTE | 2017-04-11 10:35 | Anesthesiology Progress Note ---
Anesthesia Post Op Note Date & Time Apr 11, 2017 at 10:35 Vital Signs Pain Intensity: 0 Vital Signs Past 12 Hours Date Time Temp Pulse Resp B/P (MAP) Pulse Ox O2 Delivery O2 Flow Rate FiO2 04/11/17 10:20 36.8 64 14 128/68 99 Nasal Cannula 2 04/11/17 10:10 63 16 123/67 100 Mask 2 04/11/17 10:03 36.6 72 16 112/67 98 Mask 2 04/11/17 05:41 36.6 72 20 145/77 95 Room Air Notes Mental Status: alert / awake / arousable, participated in evaluation Pt Amnestic to Procedure: Yes Nausea / Vomiting: adequately controlled Pain: adequately controlled Airway Patency, RR, SpO2: stable & adequate BP & HR: stable & adequate Hydration State: stable & adequate Neuraxial Anesthesia: was administered, sensory block is resolving Anesthetic Complications: no major complications apparent
--- NOTE | 2017-04-11 10:48 | DIAGNOSTIC IMAGING REPORT ---
SINGLE VIEW PELVIS; SINGLE VIEW RIGHT HIP CLINICAL HISTORY: Postoperative examination. FINDINGS: An AP portable view of the hips and pelvis with a crosstable lateral portable view of the right hip are obtained. A bipolar right hip arthroplasty is in near-anatomic alignment. At least 2 cortical lag screws transfix the acetabular cup. No acute fracture is identified. There are expected postoperative changes overlying the right hip including skin clips, subcutaneous gas, a surgical drain, and soft tissue swelling. Mild arthritic change is present in the left hip. IMPRESSION: Expected postoperative findings status post right hip arthroplasty. No acute fracture is seen. Electronically signed by: David Roque M.D. 04/11/2017 10:47 AM Dictated Date/Time: 04/11/2017 10:46 AM
[2017-04-11] MEDS: D5W AND 1/2NSS + 20MEQ KCL 1,000 ML IV SCH ×2 (13:27→21:54)
[2017-04-11] MEDS: ACETAMINOPHEN 500 MG TAB PO SCH ×2 (13:28→21:51)
[2017-04-11] MEDS: FERROUS GLUCONATE 324 MG TAB PO SCH ×2 (13:28→18:48)
[2017-04-11] MEDS: CHOLECALCIFEROL 1000 INTER.UNIT TAB PO SCH (18:49)
[2017-04-11] MEDS: NIACIN 500 MG TAB IMMEDIATE RELEASE PO SCH (18:49)
[2017-04-11] MEDS: TRAMADOL HCL 50 MG TAB PO PRN (19:05)
[2017-04-11] MEDS: SPIRONOLACTONE/HCTZ 25-25 PO SCH (21:00)
[2017-04-11] MEDS: MONTELUKAST SOD 10 MG TAB PO SCH (21:50)
[2017-04-11] MEDS: POTASSIUM CHLORIDE 10 MEQ TABCR PO SCH (21:51)
[2017-04-11] MEDS: ASPIRIN 81 MG ECTAB PO SCH (21:51)
[2017-04-11] MEDS: DOCUSATE SODIUM 100 MG CAP PO SCH (21:52)
[2017-04-11] MEDS: SENNA 8.6 MG TAB PO SCH (21:52)
--- NOTE | 2017-04-11 21:54 | Progress Note ---
Progress Note Date of Service Apr 11, 2017. Progress Note 66-year-old female underwent a right total hip arthroplasty because of severe osteoarthritis. Her medical problems include celiac disease, hypercholesterolemia, osteopenia, environmental allergies. I did see the patient in the office prior to surgery. The procedure was well tolerated. She is doing well. Not requiring any significant amount of pain medication. She is tolerating her diet. Sitting up in her bed. Visiting with her family. She is in a stable condition. We'll continue monitoring her vital signs. Monitor her laboratory tests. Advancing her activity.
--- NOTE | 2017-04-12 00:18 | OPERATIVE REPORT ---
DATE OF OPERATION: 04/11/2017 INDICATION FOR PROCEDURE: The patient is a 66-year-old female with progressive osteoarthritis of right hip over the past couple years. She has severe osteoarthritis and she has failed all conservative management. Her right hip demonstrates [id number] in the right hip joint and she has superior lateral subluxation of the femur with some superior lateral bone loss noted in the acetabulum. PREOPERATIVE DIAGNOSIS: End-stage osteoarthritis, right hip. POSTOPERATIVE DIAGNOSIS: Same. PROCEDURE: Right total hip arthroplasty. SURGEON: Dr. Silver. CLAM DREDGER: ADRIANNA Armendariz. ANESTHESIA: Spinal and IV sedation and Orthomix. OPERATIVE PROCEDURE: The patient taken to the operating room, anesthetized under spinal anesthesia. She was placed supine on the operating room table on a sacral pad. Bed was placed in some Trendelenburg slightly and tilted to the left to help expose the right hip. The right hip was also placed on a right foot roll to flex the knee 90 degrees, hip 60 degrees as necessary during the procedure. Then, her right hip was sterilely prepped and draped in usual sterile fashion using Chloraprep. Used the Acevedo type approach to the hip. A lateral incision made over the right hip. Skin was incised sharply, subcutaneous flaps were elevated. The fascia pinky was divided longitudinally and the gluteus joseph fascia was split proximally. The trochanteric bursa was resected. The gluteus medius was intact. The medius was split between its anterior 40% and posterior 60%. A curvilinear incision was made through medius tendon leaving a cuff of tissue for repair on the trochanter. The vastus lateralis was split proximally for about 3 cm. Muscular capsular flap was elevated off the hip joint. Hip joint demonstrated the femoral head had significant deformity and articular loss. The acetabulum had superior lateral bone wear with superior lateral migration of the humeral head. The hip was dislocated with flexion and external rotation using a bone hook. The femoral neck cut was made 15 mm proximal to lesser trochanter in neutral anteversion. The femoral head and neck fragment were removed. We released the anterior capsule, excised some of the capsule, we excised some of the chronically inflamed synovial tissue and soft tissue in the acetabular fossa. There were spurs around the acetabulum that were resected and all the acetabular labrum was resected. I used the HackPad Trident PSL shell. I started with a 44 mm reamer to reset the acetabulum back to its normal position. We reamed this medially at the inner table and then went up with sequential increments up to a 50 mm reamer which had appropriate fit and fill for the implant. We did a trial reduction, followed by placement of the final shell in position after irrigation with antibiotic solution. Final shell was a Trident PSL 50 mm E acetabular shell. I tried to reproduce the patient's anatomy, 15 degrees of anteversion and placing the cup in about 45 degrees of abduction. The pressfit was satisfactory and 2 additional screws were placed, 6.5 x 25 x2 mm in the posterior superior quadrant. Then, we went ahead and placed the Trident X3, 36 mm E polyethylene into the shell. We tested this to be stable and then went ahead and exposed the femur. This was positioned in flexion and external rotation with retractors and then went ahead and used the box osteotome to open the canal, followed by a canal reamer, followed by sequential broaches up to a 4 which had appropriate fit and fill. Had 132-degree neck angle per preoperative templating. Then, we used a +0 neck length which long slightly by 5 mm that was needed for stability. Soft tissue tension was still satisfactory, so felt this was acceptable. The trials were removed and then went ahead after further irrigation placing the Accolade II tapered stem size 4 and 132-degree neck angle from XO1. We impacted this in with a tight pressfit and then went ahead with the Biolox ceramic 36 mm +0 head. Then, after that was positioned and impacted with stable fit, we went ahead and reduced the hip to the acetabulum and then assessed flexion, internal rotation and adduction, and hip was completely stable in extension and external rotation; in adduction also the hip was completely stable. The wound was copiously irrigated. Used the Betadine soak. Then, we placed 2 drains out laterally and connected them to a Hemovac, placed them deep into the hip joint. Then, the minimus was closed with interrupted [id number] #1 Vicryl sutures. The medius was closed with transosseous #5 FiberWire suture using Jamel-Lyndon suture technique and lateral row soft tissue fixation with interrupted #2 FiberWire and the vastus lateralis was closed with [id number] #1 Vicryl sutures and the medius split was closed with [id number] #1 Vicryl sutures. A secure repair was obtained. The fascia pinky was closed with [id number] #1 Vicryl sutures. Subcutaneous tissues closed with interrupted large #2 Vicryls, followed by 2-0 Vicryl, followed by some vick and sterile dressing. The patient tolerated the procedure well. ADRIANNA Armendariz, was my first line supervisor and he functioned as first line supervisor with leg positioning, soft tissue retraction, with instrument management during the replacement, and he went ahead and performed the outer fascial and subcutaneous and skin closures, and he will participate in postoperative care of the patient. I attest to the content of the Intraoperative Record and any orders documented therein. Any exceptions are noted below. DIANELYS
[2017-04-12 03:43] VITALS: BP 118/69; PULSE 69; TEMP 36.7; O2SAT 95
[2017-04-12] MEDS: ACETAMINOPHEN 500 MG TAB PO SCH ×3 (05:39→22:08)
[2017-04-12] MEDS: TRAMADOL HCL 50 MG TAB PO PRN (05:39)
[2017-04-12 06:55] VITALS: BP 117/57; PULSE 70; TEMP 36.8; O2SAT 96
[2017-04-12 07:13] LABS: BASO % 0.3 %; BASO ABS # 0.03 K/uL (0-0.2); COMPLETE YES; EOS % 0.3 %; HEMATOCRIT 30.5 % (37-47); IG% 0.1 %; LYMPH % 17.3 %; LYMPH ABS # 1.73 K/uL (1.2-3.4); MEAN CELL VOLUME 90.5 fL (80-100); MEAN CORPUSCULAR HEMOGLOBIN 30.3 pg (25-34); MEAN CORPUSCULAR HGB CONC 33.4 g/dl (32-36); MEAN PLATELET VOLUME 8.3 fL (7.4-10.4); MONO % 10.2 %; NEUT % 71.8 %; PLATELET COUNT 288 K/uL (130-400); RED BLOOD COUNT 3.37 M/uL (4.2-5.4); WHITE BLOOD COUNT 9.99 K/uL (4.8-10.8)
[2017-04-12] MEDS: D5W AND 1/2NSS + 20MEQ KCL 1,000 ML IV SCH (07:41)
[2017-04-12 07:48] LABS: BUN/CREATININE RATIO 15.6 (10-20); CALCIUM 8.6 mg/dl (8.5-10.1); CREATININE 0.61 mg/dl (0.60-1.20); POTASSIUM 3.5 mmol/L (3.5-5.1)
[2017-04-12] MEDS: DOCUSATE SODIUM 100 MG CAP PO SCH ×2 (08:53→21:13)
[2017-04-12] MEDS: FERROUS GLUCONATE 324 MG TAB PO SCH ×3 (08:53→18:27)
[2017-04-12] MEDS: ASPIRIN 81 MG ECTAB PO SCH ×2 (08:53→21:13)
[2017-04-12] MEDS: MULTIVITAMIN TAB PO SCH (08:55)
[2017-04-12] MEDS: PANTOprazole SOD 40 MG TAB PO SCH (08:55)
[2017-04-12] MEDS: POTASSIUM CHLORIDE 10 MEQ TABCR PO SCH ×2 (08:55→20:01)
[2017-04-12] MEDS: CYANOCOBALAMIN 500 MCG TAB (VIT B-12) PO SCH (08:56)
[2017-04-12] MEDS: SPIRONOLACTONE/HCTZ 25-25 PO SCH ×2 (08:56→20:00)
[2017-04-12] MEDS ORDERED: MULTIVITAMIN TAB PO SCH (09:00)
--- NOTE | 2017-04-12 09:36 | Progress Note ---
Orthopedic SOAP Note Subjective Date of Service: Apr 12, 2017. Additional Notes: hip stiff ,c/o right shoulder pain Problem List Medical Problems: (1) Asthma Status: Chronic (2) Celiac Disease Status: Chronic (3) Hyperlipidemia Nec/Nos Status: Chronic (4) Hypertension Nos Status: Chronic (5) Idiopathic Scoliosis Status: Chronic (6) Iron Defic Anemia Nos Status: Chronic (7) Levoscoliosis Status: Acute (8) Lumbago Status: Chronic (9) Osteoporosis Nos Status: Chronic (10) Osteoporosis Nos Status: Chronic (11) Spasm of back muscles Status: Acute Surgical Problems: (1) H/O: hysterectomy Status: Chronic Objective N/V intact, hip located, dressing C/D/I right shoulder pain overhead rom Date Time Temp Pulse Resp B/P (MAP) Pulse Ox O2 Delivery O2 Flow Rate FiO2 04/12/17 07:50 Room Air 04/12/17 06:55 36.8 70 16 117/57 (77) 96 Room Air 04/12/17 03:43 36.7 69 15 118/69 (85) 95 Room Air 04/11/17 23:34 Room Air 04/11/17 23:04 36.6 67 15 109/67 (81) 96 Room Air 04/11/17 19:06 36.4 81 16 117/62 (80) 96 Room Air 04/11/17 15:40 Room Air 04/11/17 15:18 36.4 73 18 120/63 (82) 95 Room Air 04/11/17 14:21 76 16 110/75 (87) 98 Room Air 04/11/17 13:00 85 16 122/72 (89) 96 Room Air 04/11/17 11:58 83 16 115/63 (80) 97 Room Air 04/11/17 11:30 69 16 117/71 (86) 99 Room Air 04/11/17 11:00 99 Nasal Cannula 2.0 04/11/17 11:00 36.2 61 18 124/67 (86) 99 Nasal Cannula 2.0 04/11/17 11:00 99 Nasal Cannula 2.0 04/11/17 10:40 69 16 128/67 100 Nasal Cannula 2 04/11/17 10:30 62 20 130/68 100 Mask 2 04/11/17 10:20 36.8 64 14 128/68 99 Nasal Cannula 2 04/11/17 10:10 63 16 123/67 100 Nasal Cannula 2 04/11/17 10:03 36.6 72 16 112/67 98 Nasal Cannula 2 Laboratory Results 24 Hours: Test 04/12/17 06:56 White Blood Count 9.99 K/uL Red Blood Count 3.37 M/uL Hemoglobin 10.2 g/dL Hematocrit 30.5 % Mean Corpuscular Volume 90.5 fL Mean Corpuscular Hemoglobin 30.3 pg Mean Corpuscular Hemoglobin Concent 33.4 g/dl Platelet Count 288 K/uL Mean Platelet Volume 8.3 fL Neutrophils (%) (Auto) 71.8 % Lymphocytes (%) (Auto) 17.3 % Monocytes (%) (Auto) 10.2 % Eosinophils (%) (Auto) 0.3 % Basophils (%) (Auto) 0.3 % Neutrophils # (Auto) 7.17 K/uL Lymphocytes # (Auto) 1.73 K/uL Monocytes # (Auto) 1.02 K/uL Eosinophils # (Auto) 0.03 K/uL Basophils # (Auto) 0.03 K/uL Assessment pod #1 s/p radha right , chronic pain shoulder tendinopathy djd Plan radha protocol ,d/c home with home health. injection shoulder.
[2017-04-12] MEDS ORDERED: BUPIVACAINE 0.25% 30 ML VIAL INFIL STA (09:57)
[2017-04-12] MEDS ORDERED: ETHYL CHLORIDE AER SPR 100 ML CAN EXT STA (09:59)
[2017-04-12] MEDS ORDERED: METHYLPREDNISOLONE ACETATE 80 MG/ML VIAL IA STA (09:59)
--- NOTE | 2017-04-12 10:18 | Anesthesiology Progress Note ---
Anesthesia Post Op Note Date & Time Apr 12, 2017 at 10:17 Vital Signs Pain Intensity: 2.0 Vital Signs Past 12 Hours Date Time Temp Pulse Resp B/P (MAP) Pulse Ox O2 Delivery O2 Flow Rate FiO2 04/12/17 07:50 Room Air 04/12/17 06:55 36.8 70 16 117/57 (77) 96 Room Air 04/12/17 03:43 36.7 69 15 118/69 (85) 95 Room Air 04/11/17 23:34 Room Air 04/11/17 23:04 36.6 67 15 109/67 (81) 96 Room Air Notes Mental Status: alert / awake / arousable, participated in evaluation Pt Amnestic to Procedure: Yes Nausea / Vomiting: adequately controlled Pain: adequately controlled Airway Patency, RR, SpO2: stable & adequate BP & HR: stable & adequate Hydration State: stable & adequate Neuraxial Anesthesia: sensory block resolved Anesthetic Complications: no major complications apparent
[2017-04-12] MEDS: OXYCODONE HCL IR 5 MG TAB (IMMEDIATE RELEASE) PO PRN ×3 (11:06→22:08)
[2017-04-12 15:21] VITALS: BP 126/69; PULSE 78; TEMP 36.5; O2SAT 100
[2017-04-12] MEDS: NIACIN 500 MG TAB IMMEDIATE RELEASE PO SCH (18:26)
[2017-04-12] MEDS: CHOLECALCIFEROL 1000 INTER.UNIT TAB PO SCH (18:26)
[2017-04-12] MEDS ORDERED: SPIRONOLACTONE/HCTZ 25-25 PO SCH (18:30)
[2017-04-12] MEDS ORDERED: NURSING VERBAL MED ORDER ONE ×2 (18:45→21:00)
[2017-04-12] MEDS: MONTELUKAST SOD 10 MG TAB PO SCH (21:13)
[2017-04-12] MEDS: SENNA 8.6 MG TAB PO SCH (21:14)
--- NOTE | 2017-04-12 21:18 | Progress Note ---
Progress Note Date of Service Apr 12, 2017. Progress Note 66 old female underwent a right total hip arthroplasty yesterday by Dr. Reno Chance. The procedure was well tolerated. She is having some pain today. But her pain is controlled. She is undergoing physical therapy. She is doing well. She did not sleep well last night. Usually at home she takes 25 mg Benadryl and 2 tablets of Tylenol at that time. She denied any headache or dizziness or lightheadedness. No chest pain. No shortness of breath. No abdominal pain no nausea no vomiting. No diarrhea. No pain in her back. Hip pain related to her surgery. The following is noted today: * it was discovered that she shared their home with the patient who tested positive for Clostridium difficile. They were in the same home for only a few hours.she is completely asymptomatic. Not having any diarrhea. No fever. Will check her stool for C. difficile * Will go ahead and prescribe her Benadryl 25 mg at bedtime. * Continuing her therapy * Her hemoglobin today was 10.2. * Anticipating that she will go home with therapy and home health nursing.
[2017-04-12 22:49] VITALS: BP 115/68; PULSE 82; TEMP 37.2; O2SAT 93
[2017-04-13] MEDS: ACETAMINOPHEN 500 MG TAB PO SCH (05:20)
[2017-04-13] MEDS: TRAMADOL HCL 50 MG TAB PO PRN (05:20)
[2017-04-13 06:32] VITALS: BP 103/62; PULSE 81; TEMP 36.9; O2SAT 94
[2017-04-13] MEDS ORDERED: RXC5 PO (09:13)
[2017-04-13] MEDS ORDERED: SNK PO (09:13)
[2017-04-13] MEDS ORDERED: ACET-1256 PO (09:13)
[2017-04-13] MEDS ORDERED: ASPI81TA28 PO (09:13)
--- NOTE | 2017-04-13 09:23 | Discharge Instructions ---
Discharge Instructions Date of Service Apr 13, 2017. Admission Reason for Admission: Right Hip Degenerative Joint Disease Discharge Discharge Diagnosis / Problem: Right Hip Djd Discharge Goals Goal(s): Decrease discomfort, Improve function, Increase independence Activity Recommendations Activity Limitations: per Instructions/Follow-up section Weightbearing Status: Right weightbearing (as tolerated) . Instructions / Follow-Up Instructions / Follow-Up ACTIVITY RECOMMENDATIONS: SELF CARE INSTRUCTIONS AFTER TOTAL HIP REPLACEMENT Until the incision and soft tissues around your hip have healed, there is a possibility that the hip prosthesis could dislocate. A. Observe the following precautions to prevent dislocation: 1. Don't bend your hip greater than 90 degrees. 2. Avoid crossing your legs or ankles while standing or lying. 3. Sit with your feet placed 6 inches apart. 4. When sitting, keep your knees below your hips. Sit on a firm surface, avoid deep, soft chairs and couches. Use an elevated toilet seat in the bathroom. 5. Don't bend over at the waist. Use a long handled shoehorn and a sock aid to help you put on your shoes and socks. A ct tech can help you steel pickler objects that are too high or too low to reach. 6. Keep car riding to a minimum for at least one month after surgery. B. Your balance may be shaky for a while. Use crutches or a walker until directed by your doctor. C. Use hand rails when walking on stairs. D. Wear low heeled shoes with non-slip soles. E. Be sure that your floors are free of things that could trip you - throw rugs , electrical cords, small objects. Avoid wet and waxed floors, especially with crutches and canes. F. Try to walk several times a day with rest periods between. G. Continue with all the exercises taught to you in the hospital. Again, make walking a part of your daily routine. SPECIAL CARE INSTRUCTIONS: VERY IMPORTANT TO READ AND REVIEW A. You may still be at risk for phlebitis and blood clots. 1. Wear surgical stockings (DONA hose) for 2 weeks after surgery to improve circulation and reduce swelling. 2. Take Aspirin 81mg twice daily for 4 weeks or as directed by your doctor. This is your blood thinner. 3. High risk patients may be prescribed a stronger blood thinner if necessary. 4. If you are on Coumadin normally, your family doctor/senior case manager should monitor your blood work. Expect a phone call the day of or the day after bloodwork is drawn to adjust your dosage. B. You must take antibiotics before having dental work, bladder, bowel and other surgery. Your doctor will provide you with a permanent card to carry describing precautions. C. Call [facility] if you have a fever, redness or swelling around the incision, cloudy drainage from incision, or sudden increase in pain in your hip, not relieved by your regular pain medication. D. Please call the office at if you have any concerns or questions about your operation or recovery. * YOU MAY SHOWER, NO TUB BATHS UNTIL CLEARED BY YOUR DOCTOR. * WEAR DONA HOSE 20 HOURS PER DAY FOR 2 WEEKS. * YOU SHOULD USE A WALKER OR CRUTCHES FOR 2-4 WEEKS. THIS WILL HELP PREVENT STRAIN ON YOUR HIP MUSCLE AND ALLOW IT TO HEAL PROPERLY. YOU MAY WEAN TO A CANE TOLERATED. * MOST PATIENTS WILL HAVE HOME NURSING FOR THERAPY. IF YOU DECIDE TO DO OUTPATIENT PHYSICAL THERAPY, PLEASE SCHEDULE THIS 3 TIMES PER WEEK. * Silverlon- This is a large adhesive bandage that contains silver ions. This helps your incision heal by fighting off bacteria and protecting it from the outside environment. You are permitted to shower with this dressing. This will remain on your incision for 7 days and then should be removed. Some visible blood or drainage through the dressing window is normal. If there is significant drainage or leaking noted before the 7 days notify your doctor's office immediately. Once removed, keep incision clean and dry. If there is any drainage or redness noted, please call your surgeon. . FOLLOW UP VISIT: If appointment is not already scheduled: Please call [facility] to make a follow-up appointment for 2 weeks after your surgery at . Current Hospital Diet Patient's current hospital diet: Gluten Free Diet Discharge Diet Recommended Diet: Gluten Free Diet Procedures Procedures Performed: Right Hip total arthroplasty Pending Studies Studies pending at discharge: no Laboratory Results Hemoglobin A1c Test 03/16/17 14:10 Range/Units Estimated Average Glucose 117 mg/dl Hemoglobin A1c 5.7 H 4.5-5.6 % Medical Emergencies . Who to Call and When: Medical Emergencies: If at any time you feel your situation is an emergency, please call 911 immediately. . Non-Emergent Contact Non-Emergency issues call your: Surgeon Call Non-Emergent contact if: temperature is above 101.5, your pain is not controlled, your pain is worsening, wound has increased drainage, wound has increased redness . "Provider Documentation" section prepared by Stan Garza. . VTE Core Measure Inpt VTE Proph given/why not?: Other Anticoagulation, T.E.D. Stockings, SCD's [place] Drug Monitoring Program Search Results: patient reviewed within database, no issues identified
--- NOTE | 2017-04-13 09:36 | Orthopedic Progress Note ---
Orthopedic Progress Note Date of Service Apr 13, 2017. Subjective Post OP Day: 2 Reports: feeling well, Denies: complaints Objective calves soft nontender, N/V intact, hip located, dressing C/D/I, A&O x3, toes mobile Date Time Temp Pulse Resp B/P (MAP) Pulse Ox O2 Delivery O2 Flow Rate FiO2 04/13/17 08:08 Room Air 04/13/17 06:32 36.9 81 16 103/62 (76) 94 Room Air 04/12/17 23:45 Room Air 04/12/17 22:49 37.2 82 16 115/68 (84) 93 Room Air 04/12/17 15:21 36.5 78 16 126/69 (88) 100 Room Air 04/12/17 15:15 Room Air Assessment & Plan Assessment: pod #2 s/p radha right , chronic pain shoulder tendinopathy djd Plan: Progressing well Subacromial injection performed on R shoulder last night by Dr Silver. (3cc Plain Marcaine/1cc Depomedrol) Plan for dc to home today with Home Health services Inhouse Planning Pain Management: Ultram, Morphine, PO Tylenol, Oxy IR DVT Prophylaxis: TEDs, SCDs, ASA Discharge Planning Discharge Planning: home with home health Pain Management: PO Tylenol, Oxy IR DVT Prophylaxis: TEDs, SCDs, ASA Therapy: Physical Therapy
[2017-04-13] MEDS ORDERED: ASPEC81 PO (09:41)
[2017-04-13] MEDS ORDERED: ACET-24 PO (09:41)
[2017-04-13] MEDS: DOCUSATE SODIUM 100 MG CAP PO SCH (10:13)
[2017-04-13] MEDS: PANTOprazole SOD 40 MG TAB PO SCH (10:13)
[2017-04-13] MEDS: SPIRONOLACTONE/HCTZ 25-25 PO SCH (10:13)
[2017-04-13] MEDS: FERROUS GLUCONATE 324 MG TAB PO SCH (10:13)
[2017-04-13] MEDS: ASPIRIN 81 MG ECTAB PO SCH (10:13)
[2017-04-13] MEDS: CYANOCOBALAMIN 500 MCG TAB (VIT B-12) PO SCH (10:14)
[2017-04-13] MEDS: POTASSIUM CHLORIDE 10 MEQ TABCR PO SCH (10:14)
[2017-04-13] MEDS: MULTIVITAMIN TAB PO SCH (10:14)
[2017-04-13 10:22] VITALS: BP 103/62; PULSE 81; TEMP 36.9; O2SAT 94
--- NOTE | 2017-04-13 11:35 | DISCHARGE SUMMARY ---
DISCHARGE DIAGNOSIS: Degenerative joint disease, right hip. SECONDARY DIAGNOSES: Celiac disease, hypercholesterolemia, osteopenia, environmental allergies, ocular rosacea, recurrent low back pain with levoscoliosis, urinary tract infection in the past. CONSULTS: Dr. Blanca. COMPLICATIONS: None. PROCEDURES: Right total hip arthroplasty performed by Dr. Silver on 04/11/2017. BRIEF HISTORY: As dictated in the history and physical. HOSPITAL SUMMARY: The patient was admitted on the above-noted date and had the above-noted surgery performed which he tolerated well. On the first postoperative day, she was having some stiffness in the hip and complained of right shoulder pain which she had a history of DJD. Neurovascularly was intact. Hip was located. Dressings clean, dry and intact. She had some right shoulder pain with overhead range of motion. Vital signs were stable. She was afebrile. Hemoglobin was 10.2. She was started on physical therapy protocol and continued on DVT prophylaxis and pain management and medical management with Dr. Blanca seeing her daily. Dr. Silver ordered a cortisone injection at the bedside and then on the evening of the first postoperative day, he returned and injected 3 mL of plain Marcaine and 1 mL of Depo-Medrol into her right subacromial space without difficulty. By her second postoperative day, she was continuing to feel well and calves were soft and nontender. Neurovascularly intact. Hip was located. Dressings were intact with Silverlon dressing. Toes were mobile. Vital signs were stable. She was afebrile. She was progressing with her PT, remaining stable, and it was felt she could be discharged to home with home health PT. For further review, please see chart. LABORATORY AND X-RAY DATA: As per chart. DISCHARGE INSTRUCTIONS: The patient was discharged to home in satisfactory condition on 04/13/2017. DIET: Gluten-free. ACTIVITY: Weightbearing as tolerated right lower extremity. Follow FARIDEH instruction sheets and special care instructions as noted. Follow up with Dr. Silver in 2 weeks, the patient to call for appointment. Follow up with Dr. Blanca as per instructions. DISCHARGE MEDICATIONS: Acetaminophen 1000 mg p.o. q. 8 hours for 21 days. Aspirin 81 mg p.o. b.i.d. for 30 days, and after 30 days, resume once daily dosing of your aspirin. Oxycodone 5-10 mg p.o. q. 4 hours p.r.n., Senna 17.2 mg p.o. at bedtime. Resume home meds as listed. Stop taking ibuprofen and naproxen, and after 21 days, she may resume her regular dosing of acetaminophen.
== END 2017-04-13 11:08 | disposition home health service (06) | DRG 470 ==
LOC: C.ACU 05:19 → C.MSN 07:00 → ENRESERV 10:25 → C.MSW 04-12 16:37
PROVIDERS: ADMIT Orthopaedic Surgery Sports Medicine; ATTEND Orthopaedic Surgery Sports Medicine
PROC: 0SR903A Replacement of Right Hip Joint with Ceramic Synthetic Substitute, Uncemented, Open Approach (ICD-10-PCS; principal; 2017-04-11 07:15)
DX: M16.11 Unilateral primary osteoarthritis, right hip (principal); M19.011 Primary osteoarthritis, right shoulder; E78.00 Pure hypercholesterolemia, unspecified; I10 Essential (primary) hypertension; J45.909 Unspecified asthma, uncomplicated; K21.9 Gastro-esophageal reflux disease without esophagitis; Z79.82 Long term (current) use of aspirin; Z79.899 Other long term (current) drug therapy

== ENCOUNTER → 2017-06-05 | Outpatient (CLI) | payer OTHER ==
[~2017-06-05] MED LIST changes: -IBUP-1050 PO; -NAPR1TAB9 PO; +RXC5 PO; +SNK PO
[2017-06-05 12:43] LABS: BASO % 0.8 %; BASO ABS # 0.06 K/uL (0-0.2); COMPLETE YES; EOS % 2.2 %; HEMATOCRIT 35.3 % (37-47); IG% 0.3 %; LYMPH % 17.6 %; LYMPH ABS # 1.39 K/uL (1.2-3.4); MEAN CELL VOLUME 90.1 fL (80-100); MEAN CORPUSCULAR HEMOGLOBIN 29.3 pg (25-34); MEAN CORPUSCULAR HGB CONC 32.6 g/dl (32-36); MEAN PLATELET VOLUME 8.8 fL (7.4-10.4); MONO % 5.1 %; PLATELET COUNT 388 K/uL (130-400); RED BLOOD COUNT 3.92 M/uL (4.2-5.4); WHITE BLOOD COUNT 7.89 K/uL (4.8-10.8)
[2017-06-05 12:53] LABS: ESTIMATED AVERAGE GLUCOSE 117 mg/dl; HA1C FLAG Normal (Normal)
[2017-06-05 13:13] LABS: URINE APPEARANCE CLEAR (CLEAR); URINE BILIRUBIN NEG (NEG); URINE COLOR YELLOW; URINE NITRITE NEG (NEG); URINE SPECIFIC GRAVITY 1.016 (1.000-1.030); UROBILINOGEN NEG (NEG)
[2017-06-05 13:14] LABS: MANUAL MICROSCOPIC REQUIRED? NO; REVIEW REQ? NO
[2017-06-05 13:29] LABS: ALT/SGPT 21 U/L (12-78); AST/SGOT 19 U/L (15-37); BLOOD UREA NITROGEN 20 mg/dl (7-18); BUN/CREATININE RATIO 24.4 (10-20); CALCIUM 9.6 mg/dl (8.5-10.1); CARBON DIOXIDE 27 mmol/L (21-32); CHLORIDE 107 mmol/L (98-107); CHOLESTEROL 204 mg/dl (0-200); GLUCOSE 87 mg/dl (70-99); POTASSIUM 3.8 mmol/L (3.5-5.1); SODIUM 139 mmol/L (136-145); TRIGLYCERIDES 146 mg/dl (0-150); VERY LOW DENSITY LIPOPROT CALC 29 mg/dl
[2017-06-05 13:39] LABS: ALB/GLOB RATIO 1.2 (0.9-2); ALKALINE PHOSPHATASE 87 U/L (45-117); HDL CHOLESTEROL 51 mg/dl
== END | disposition home or self-care (01) ==
LOC: C.LABSPEC 12:07
PROVIDERS: ATTEND Internal Medicine
DX: K90.0 Celiac disease (principal); E78.5 Hyperlipidemia, unspecified; R73.9 Hyperglycemia, unspecified; N39.0 Urinary tract infection, site not specified

== ENCOUNTER → 2017-06-18 | Outpatient (CLI) | payer OTHER ==
[2017-06-18 17:31] LABS: URINE APPEARANCE CLEAR (CLEAR); URINE BILIRUBIN NEG (NEG); URINE COLOR YELLOW; URINE NITRITE NEG (NEG); URINE PH 7.5 (4.5-7.5); UROBILINOGEN NEG (NEG)
[2017-06-18 17:40] LABS: MANUAL MICROSCOPIC REQUIRED? NO; REVIEW REQ? NO
== END | disposition home or self-care (01) ==
LOC: C.LABPVFM 15:49
PROVIDERS: ATTEND Internal Medicine
DX: N39.0 Urinary tract infection, site not specified (principal)

== ENCOUNTER → 2017-08-17 | Outpatient (CLI) | payer OTHER ==
[~2017-08-17] MED LIST changes: -ACET-1256 PO; -CHOL100027 PO; +CHOL1TAB52 PO; +CLAR500T38 PO; +IBUP-1459 PO; +METH4PAK PO; +MISCCAP46 PO; +NAPR1TAB9 PO; -RXC5 PO; -SNK PO
--- NOTE | 2017-08-17 08:50 | DIAGNOSTIC IMAGING REPORT ---
FUSION CT SINUSES W/O HISTORY: 67 years-old Female J32.9 Chronic sinusitis S/P SEVERAL COURSE OF ANTIBIOTICS AND PRE COMPARISON: CT head 04/20/2016 TECHNIQUE: Multiple axial CT images of the paranasal sinuses were obtained without contrast. thePlatform axial images also submitted. A dose lowering technique was used consistent with the principals of SHANNEN. FINDINGS: Imaged intracranial structures demonstrate no acute abnormality. Minimal opacification of a few mastoid air cells on the left. Mastoid air cells and middle ear cavities are otherwise clear and unremarkable. Mild mucoperiosteal thickening of the bilateral maxillary and sphenoid sinuses. Frontal sinuses are hypoplastic. Mild mucosal thickening involves the inferior frontal sinuses with mild left greater than right ethmoid sinus mucosal thickening also noted. There is mild rightward deviation and spurring of the nasal septum. No bhumi bullosa. All the paranasal sinuses appear to be somewhat hypoplastic. No Linda cell identified. Paola ac appears normal. Mild mucosal thickening with patency of the bilateral maxillary ostiomeatal units, frontoethmoidal and sphenoethmoidal recesses. Nasopharynx appears unremarkable and is patent. No significant adenoid tonsillar enlargement. No acute facial bone fracture or dislocation identified. Evaluation of the soft tissues demonstrates no acute abnormality. Degenerative changes are seen within the imaged cervical spine. IMPRESSION: 1. Mild mucoperiosteal thickening of the paranasal sinuses as above with patency and mild mucosal thickening of the bilateral maxillary ostiomeatal units, frontoethmoidal and sphenoethmoidal recesses. 2. Hypoplasia of the frontal sinuses. 3. Mild rightward deviation and spurring of the nasal septum. The above report was generated using voice recognition software. It may contain grammatical, syntax or spelling errors. Electronically signed by: Cuauhtemoc Rubin M.D. 08/17/2017 8:49 AM Dictated Date/Time: 08/17/2017 8:41 AM
== END | disposition home or self-care (01) ==
LOC: C.CTS 08:20
PROVIDERS: ATTEND Physician Assistant
DX: J32.9 Chronic sinusitis, unspecified (principal); Q30.1 Agenesis and underdevelopment of nose; J34.89 Other specified disorders of nose and nasal sinuses

== ENCOUNTER → 2017-08-17 | Outpatient (CLI) | payer OTHER ==
[2017-07-16 10:46] VITALS: Ht 152.4 cm; Wt 62.3 kg
[~2017-08-17] VITALS: Ht 152.4 cm; Wt 62.3 kg
[2017-08-17 15:09] LABS: BASO ABS # 0.06 K/uL (0-0.2); EOS % 1.8 %; EOS ABS # 0.11 K/uL (0-0.5); HEMATOCRIT 37.9 % (37-47); HEMOGLOBIN 12.4 g/dL (12.0-16.0); IG# 0.01 K/uL (0.00-0.02); LYMPH % 29.5 %; MEAN CORPUSCULAR HEMOGLOBIN 29.1 pg (25-34); MEAN CORPUSCULAR HGB CONC 32.7 g/dl (32-36); MONO % 6.9 %; MONO ABS # 0.42 K/uL (0.11-0.59); NEUT % 60.6 %; PLATELET COUNT 401 K/uL (130-400); RED CELL DISTRIBUTION WIDTH CV 16.3 % (11.5-14.5)
[2017-08-17 15:13] LABS: CALCIUM 10.3 mg/dl (8.5-10.1); CREATININE 0.75 mg/dl (0.60-1.20); POTASSIUM 3.7 mmol/L (3.5-5.1); PTT PATIENT 27.2 SECONDS (21.0-31.0)
[2017-08-18 07:13] LABS: HEMOGLOBIN A1C 5.7 % (4.5-5.6)
== END | disposition home or self-care (01) ==
LOC: C.LAB 08:00 → EDSTATUS 09-05 11:00
PROVIDERS: ATTEND Orthopaedic Surgery Sports Medicine
DX: Z01.812 Encounter for preprocedural laboratory examination (principal)

== ENCOUNTER → 2017-11-20 | Outpatient (CLI) | payer OTHER ==
[~2017-11-20] MED LIST changes: -CLAR500T38 PO; -DOXY20TA3 PO; +DXY50 PO; -METH4PAK PO
== END | disposition home or self-care (01) ==
LOC: C.LABSPEC 16:34
PROVIDERS: ATTEND Internal Medicine
DX: N39.0 Urinary tract infection, site not specified (principal)

== ENCOUNTER → 2017-11-20 | Outpatient (CLI) | payer OTHER ==
--- NOTE | 2017-11-22 07:47 | MAMMOGRAPHY REPORT ---
BILATERAL DIGITAL SCREENING MAMMOGRAM TOMOSYNTHESIS WITH CAD: 11/20/2017 CLINICAL HISTORY: Routine screening. TECHNIQUE: Breast tomosynthesis in addition to standard 2D mammography was performed. Current study was also evaluated with a Computer Aided Detection (CAD) system. COMPARISON: Comparison is made to exams dated: 08/04/2015 mammogram, 08/13/2014 mammogram, 02/10/2014 mammogram, 08/05/2013 mammogram, 06/19/2011 mammogram, and 12/30/2009 mammogram - [facility]. BREAST COMPOSITION: There are scattered areas of fibroglandular density in both breasts. FINDINGS: There is a 7 mm focal asymmetry in the upper outer anterior left breast, for which additio nal spot compression tomosynthesis views with nipples in profile, and possible ultrasound are recomme nded. There is a stable ribbon-shaped biopsy marker clip in the upper outer quadrant of the right breast, a nd generally stable nodularity of the right breast. Mild vascular calcifications bilaterally. No oth er suspicious mass, architectural distortion or cluster of microcalcifications is seen. IMPRESSION: ACR BI-RADS CATEGORY 0: INCOMPLETE EVALUATION: NEED ADDITIONAL IMAGING EVALUATION The 7 mm focal asymmetry in the upper outer anterior left breast needs additional evaluation. The patient will be called to schedule an appointment. Approximately 10% of breast cancers are not detected with mammography. A negative mammographic report should not delay biopsy if a clinically suggestive mass is present. Meghana Omalley M.D. ay/:11/20/2017 20:00:25 Specialty Trimmer: Sultana MARTINEZ(Alisha)(M), [facility] letter sent: Addl Imaging 0 BI-RADS Code: ACR BI-RADS Category 0: Incomplete Evaluation: Need Additional Imaging Evaluation
== END | disposition home or self-care (01) ==
LOC: C.MAMM 14:23
PROVIDERS: ATTEND Internal Medicine
DX: Z12.31 Encounter for screening mammogram for malignant neoplasm of breast (principal); R92.8 Other abnormal and inconclusive findings on diagnostic imaging of breast

== ENCOUNTER → 2017-11-23 | Day surgery (SDC) | payer OTHER ==
[2017-11-06 07:21] VITALS: Ht 152.4 cm; Wt 65.9 kg
[2017-11-06 13:14] LABS: BASO % 0.9 %; BASO ABS # 0.05 K/uL (0-0.2); EOS ABS # 0.11 K/uL (0-0.5); HEMATOCRIT 37.4 % (37-47); IG# 0.01 K/uL (0.00-0.02); LYMPH % 24.2 %; LYMPH ABS # 1.34 K/uL (1.2-3.4); MEAN CELL VOLUME 92.3 fL (80-100); MEAN CORPUSCULAR HEMOGLOBIN 29.6 pg (25-34); MEAN CORPUSCULAR HGB CONC 32.1 g/dl (32-36); MEAN PLATELET VOLUME 8.6 fL (7.4-10.4); MONO % 8.7 %; MONO ABS # 0.48 K/uL (0.11-0.59); NEUT ABS # 3.55 K/uL (1.4-6.5); PLATELET COUNT 338 K/uL (130-400); RED CELL DISTRIBUTION WIDTH CV 13.9 % (11.5-14.5); RED CELL DISTRIBUTION WIDTH SD 47.4 fL (36.4-46.3); WHITE BLOOD COUNT 5.54 K/uL (4.8-10.8)
[2017-11-06 13:23] LABS: PTT PATIENT 25.9 SECONDS (21.0-31.0)
[2017-11-06 13:38] LABS: POTASSIUM 3.8 mmol/L (3.5-5.1)
[~2017-11-23] VITALS: Ht 152.4 cm; Wt 65.9 kg
[~2017-11-23] MED LIST changes: +ATROPINE SULFATE 0.1 MG/ML 5ML SYR IV PRN; +CLINDAMYCIN PHOS 150 MG/ML 2 ML VIAL IV SCH; +DEXAMETHASONE SOD INJ 4 MG/ML VIAL IV PRN; +DEXAMETHASONE SOD INJ 4 MG/ML VIAL ONE; +ESMOLOL HCL 10 MG/ML 10 ML VIAL ONE; +EpHEDrine SULFATE INJ 50 MG/ML AMP IV PRN; +EpINEphrine INJ 1MG/ML AMP 1 MG/ML AMP ONE; +FENTANYL CITRATE INJ 50 MCG/1 ML 2 ML VIAL IV PRN; +FENTANYL CITRATE INJ 50 MCG/1 ML 2 ML VIAL ONE; +GLYCOPYRROLATE INJ 0.2 MG/ML VIAL ONE; +HYDROCODONE/ACETAMIN 5/325MG TAB PO PRN; +KETOROLAC TROMETHAMINE 30 MG/ML VIAL IV. PRN; +LABETALOL HCL IV 5 MG/ML 20ML IV PRN; +LACTATED RINGER'S 1000ML 1,000 ML IV SCH; +LIDOCAINE 4% MPF SOAK 5 ML = 1 DOSE TOP ONE; +LIDOCAINE HCL 2% 2 ML VIAL (20MG/ML) ONE; +LIDOCAINE/EPINEPHRINE 1% 20 ML VIAL ONE; +METOCLOPRAMIDE HCL INJ 5 MG/ML 2 ML VIAL IV PRN; +MoRPHine SULFATE 10 MG/ML CARP/VIAL IV PRN; +NEOSTIGMINE METHYLSULFATE 5 MG/5 ML SYR ONE; +ONDANSETRON INJ 2 MG/ML 2 ML VIAL IV PRN; +ONDANSETRON INJ 2 MG/ML 2 ML VIAL ONE; +OXYMETAZOLINE HCL 0.05% NA SPR 15 ML BTL PRN; +OXYMETAZOLINE HCL 0.05% NA SPR 15 ML BTL SCH; +PHENYLEPHRINE 100MCG/ML 5ML SYR IV PRN; +PROPOFOL IV EMULSION 10 MG/ML 20 ML VIAL IV ONE; +ROCURONIUM BROMIDE 10 MG/ML 5 ML VIAL IV ONE
--- NOTE | 2017-11-23 11:06 | History and Physical: Surg Cnt ---
History & Physical Date Nov 23, 2017. 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 ALLERGIC RHINITIS Surgical Problems: (1) H/O: hysterectomy 2/ S/P SEPTOPLASTY 3. S/P UMBILICAL HERNIA REPAIR 4. S/P CYSTOCELE REPAIR 5. S/P SHOULDER AND HIP SURGERIES 6. S/P HYSTERECTOMY 7. S/P BUNIONECTOMY Allergies Coded Allergies: Ciprofloxacin (Verified Allergy, Severe, TENDON RUPTURE, 11/23/17) Latex1 -Allergic Contact Dermititis (Verified Allergy, Mild, CONTACT DERMITITIS, 11/23/17) Gluten (Verified Allergy, Unknown, GI SYMPTOMS/CELIAC'S DISEASE, 11/23/17) Penicillins (Verified Allergy, Unknown, RASH, 11/23/17) SPECIFICALLY AMOXICILLIN Sulfa Drugs (Verified Allergy, Unknown, RASH, 11/06/17) Codeine (Verified Adverse Reaction, Unknown, N/V, 11/23/17) Meperidine (Verified Adverse Reaction, Unknown, "FELT LOOPY", 11/23/17) Home Medications Scheduled Aspirin (Aspirin Ec), 81 MG PO QPM Biotin (Biotin/Maximum Strength), 1 TAB PO QAM Calcium Carbonate-Cholecalcife (Caltrate 600+D), 1 TAB PO BID Cholecalciferol (D 5000), 5,000 UNITS PO QPM Cyanocobalamin (Vitamin B12 500MCG), 2,500 MCG PO QAM Doxycycline Hyclate (Doxycycline Hyclate), 50 MG PO QAM Fish Oil ([place]-3), 1,400 MG PO QPM Misc Natural Products (Joint Support Complex), 1 CAP PO QAM Montelukast Sodium (Singulair), 10 MG PO HS Multivitamin (Multivitamin), 1 TAB PO QAM Niacin (Niacin), 500 MG PO QPM Potassium Chloride (Micro-K Ext Rel), 30 MEQ PO BID Spironolactone & Hydrochloroth (Spironolactone/Hydrochlor), 1 TAB PO 0800,1700 Scheduled PRN Albuterol Hfa (Ventolin Hfa), 2 PUFFS INH UD PRN for ASTHMA Baclofen (Lioresal), 5 MG PO TID PRN for Muscle Spasms Diphenhydramine Hcl (Benadryl Allergy), 1 CAP PO HS PRN for Sleep Fexofenadine Hcl (Daisy Allergy), 1 TAB PO DAILY PRN for ALLERGIC REACTION Ibuprofen (Motrin), 400 MG PO BID PRN for Pain Naproxen (Aleve), 220 MG PO DAILY PRN for Pain Ranitidine Hcl (Zantac), 150 MG PO UD PRN for ACID REFLUX Physical Examination Skin: warm/dry, no rash Eyes: normal inspection, EOMI, sclerae normal ENT: + pertinent finding (R DNS, L>R ITH) Head: normocephalic, atraumatic Neck: supple, no adenopathy, trachea midline Respiratory/Chest: lungs clear, normal breath sounds, no respiratory distress Cardiovascular: regular rate, rhythm, no edema, no murmur Neurologic/Psych: no motor/sensory deficits, alert, normal reflexes, oriented x 3 Diagnosis 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
--- NOTE | 2017-11-23 13:10 | [facility] Operative Report ---
Operative Report Operative Date Nov 23, 2017. Pre-Operative Diagnosis Nasal septal deviation Hypertrophy nasal turbinates Post-Operative Diagnosis Same as pre-op Procedure(s) Performed Revision Septoplasty, Bilateral Inferior Turbinate Reduction Surgeon Dr. Jerome Diesel Truck Mechanic Surgeon(s) None Estimated Blood Loss 25ML Findings MODERATE R DNS, L>R ITH Specimens None Anesthesia Type General I attest to the content of the Intraoperative Record and any orders documented therein. Any exceptions are noted below.
--- NOTE | 2017-11-23 13:14 | Discharge Instructions ---
Discharge Instructions Date of Service Nov 23, 2017. Admission Reason for Admission: Nasal Septal Deviation, Hypertrophy Nasal Turbinat Discharge Discharge Diagnosis / Problem: SAME Discharge Goals Goal(s): Therapeutic intervention Activity Recommendations Activity Limitations: as noted below LIGHT ACTIVITY AND NO NOSE BLOWING FOR 2 WEEKS; NO DRIVING WHILE ON NORCO . Current Hospital Diet Patient's current hospital diet: Discharge Diet Recommended Diet: Regular Diet Procedures Procedures Performed: Revision Septoplasty, Bilateral Inferior Turbinate Reduction Pending Studies Studies pending at discharge: no Medical Emergencies . Who to Call and When: Medical Emergencies: If at any time you feel your situation is an emergency, please call 911 immediately. . Non-Emergent Contact Non-Emergency issues call your: Surgeon . . "Provider Documentation" section prepared by Jose Jerome. .
[2017-11-23 13:58] VITALS: TEMP 37
[2017-11-23 14:21] VITALS: BP 146/77; PULSE 67; O2SAT 96
--- NOTE | 2017-11-23 14:26 | Anesthesia Progress Nt - [facility] ---
Anesthesia Post Op Note Date & Time Nov 23, 2017 at 14:26 Vital Signs Pain Intensity: 0 Vital Signs Past 12 Hours Date Time Temp Pulse Resp B/P (MAP) Pulse Ox O2 Delivery O2 Flow Rate FiO2 11/23/17 14:21 67 16 146/77 (100) 96 Room Air 11/23/17 13:58 37.0 82 16 129/75 (93) 93 Room Air 11/23/17 13:52 36.3 11/23/17 13:50 133/71 (101) 11/23/17 13:47 78 19 93 11/23/17 13:47 77 19 11/23/17 13:45 126/70 (80) 11/23/17 13:42 75 16 11/23/17 13:42 76 16 98 11/23/17 13:40 129/74 (97) 11/23/17 13:37 81 16 11/23/17 13:37 81 16 97 11/23/17 13:35 131/75 (92) 11/23/17 13:32 84 17 95 11/23/17 13:32 84 17 11/23/17 13:30 126/71 (90) 11/23/17 13:27 85 26 99 11/23/17 13:27 85 26 11/23/17 13:25 Room Air 11/23/17 13:25 130/76 (85) 11/23/17 13:22 88 26 100 11/23/17 13:22 88 26 11/23/17 13:20 134/71 (87) 11/23/17 13:18 120/80 (94) 11/23/17 13:17 93 11/23/17 13:17 93 99 11/23/17 13:12 36.3 92 20 120/80 99 Humidified Oxygen 5 Diffusion Mask 11/23/17 10:38 36.5 68 16 163/83 (109) 97 Room Air Notes Mental Status: alert / awake / arousable, participated in evaluation Pt Amnestic to Procedure: Yes Nausea / Vomiting: adequately controlled Pain: adequately controlled Airway Patency, RR, SpO2: stable & adequate BP & HR: stable & adequate Hydration State: stable & adequate Anesthetic Complications: no major complications apparent
--- NOTE | 2017-11-23 14:31 | OPERATIVE REPORT ---
DATE OF OPERATION: 11/23/2017 PREOPERATIVE DIAGNOSES: 1. Right septal deviation, status post septoplasty in the past. 2. Left greater than right inferior turbinate hypertrophy. POSTOPERATIVE DIAGNOSES: 1. Right septal deviation, status post septoplasty in the past. 2. Left greater than right inferior turbinate hypertrophy. PROCEDURES: 1. Revision septoplasty. 2. Bilateral inferior turbinate outfracture and turbinoplasty. SURGEON: Dr. Jerome. ANESTHESIA: General endotracheal. ESTIMATED BLOOD LOSS: 25 mL. FINDINGS: 1. Moderate right septal deviation. 2. Left greater than right inferior turbinate hypertrophy. SPECIMENS: None. COMPLICATIONS: None. INDICATIONS FOR THE PROCEDURE: The patient is a 67-year-old female who has undergone septoplasty in the past by another dance director, but has continued to have problems with right greater than left nasal airway obstruction. This has been refractory to maximal medical therapy, including topical nasal steroids and antihistamines. She is found to have moderate septal deviation to the right hand side and left greater than right inferior turbinate hypertrophy. She presents for the above-mentioned procedure on an outpatient elective basis. DESCRIPTION OF PROCEDURE: After informed consent had been obtained from the patient, the patient was wheeled to the operating room and placed on the operating table in the supine position. Monitors were placed. After induction of general endotracheal anesthesia, the patient was prepped in the usual fashion for septoplasty. 1% lidocaine with 1:100,000 epinephrine was used to inject the nasal septum bilaterally, thereby performing hydrodissection of the mucoperichondrial and mucoperiosteal flaps. Lidocaine and epinephrine pledgets were then placed in the bilateral nasal cavities and pressure applied. After allowing adequate time for anesthesia and decongestion, the pledgets were removed and a #15 scalpel was used to make a right Kain incision, through which the right-sided mucoperichondrial and mucoperiosteal flap was elevated. The #15 scalpel was then used to incise the quadrangular cartilage with care to preserve a 1.5-cm dorsal caudal strut and the left-sided mucoperichondrial and mucoperiosteal flap was elevated. The patient had previous cartilaginous resection, which was perhaps over aggressive by her prior surgeon. However, there was some septal bone more posteriorly that was impinging on the airway superiorly to the right hand side. This was removed using a Zev-Wu forceps and Ameena forceps. After removal of this posterior superior septal bone, the septum was now midline. The septal cavity was suctioned. The Kain incision was closed with a 4-0 plain gut suture on a Celso needle in a quilting stitch to not only close that Taylors incision, but also perform a quilting stitch of the mucoperichondrial and mucoperiosteal flaps bilaterally to help prevent septal hematoma. A Ruelas elevator was then used to infracture and subsequently outfracture the inferior turbinates bilaterally. These were injected with 1% lidocaine with 1:100,000 epinephrine. A 2.0-mm turbinate blade using powered instrumentation was then used to perform bilateral inferior turbinoplasties in a submucosal fashion. The nasal cavities and nasopharynx were then suctioned. An orogastric tube was placed and stomach was suctioned free of any stomach contents. This marked the end of the case. The patient tolerated the procedure well. There were no apparent complications. The patient was extubated and transferred to recovery room in stable condition. I attest to the content of the Intraoperative Record and any orders documented therein. Any exception s are noted below.
== END | disposition home or self-care (01) ==
LOC: X.SURG 10:03
DX: J34.2 Deviated nasal septum (principal); J34.3 Hypertrophy of nasal turbinates; E78.5 Hyperlipidemia, unspecified; I10 Essential (primary) hypertension; J45.909 Unspecified asthma, uncomplicated; M41.20 Other idiopathic scoliosis, site unspecified; M81.0 Age-related osteoporosis without current pathological fracture; M16.11 Unilateral primary osteoarthritis, right hip; D50.9 Iron deficiency anemia, unspecified; Z88.1 Allergy status to other antibiotic agents; Z91.040 Latex allergy status; Z88.0 Allergy status to penicillin; Z88.2 Allergy status to sulfonamides; Z88.5 Allergy status to narcotic agent; Z88.8 Allergy status to other drugs, medicaments and biological substances; Z79.82 Long term (current) use of aspirin; Z79.899 Other long term (current) drug therapy

== ENCOUNTER → 2017-12-04 | Outpatient (CLI) | payer OTHER ==
[~2017-12-04] MED LIST changes: -ASPI81TA28 PO; -ATROPINE SULFATE 0.1 MG/ML 5ML SYR IV PRN; -CLINDAMYCIN PHOS 150 MG/ML 2 ML VIAL IV SCH; -DEXAMETHASONE SOD INJ 4 MG/ML VIAL IV PRN; -DEXAMETHASONE SOD INJ 4 MG/ML VIAL ONE; -ESMOLOL HCL 10 MG/ML 10 ML VIAL ONE; -EpHEDrine SULFATE INJ 50 MG/ML AMP IV PRN; -EpINEphrine INJ 1MG/ML AMP 1 MG/ML AMP ONE; -FENTANYL CITRATE INJ 50 MCG/1 ML 2 ML VIAL IV PRN; -FENTANYL CITRATE INJ 50 MCG/1 ML 2 ML VIAL ONE; -GLYCOPYRROLATE INJ 0.2 MG/ML VIAL ONE; -HYDROCODONE/ACETAMIN 5/325MG TAB PO PRN; -IBUP-1459 PO; -KETOROLAC TROMETHAMINE 30 MG/ML VIAL IV. PRN; -LABETALOL HCL IV 5 MG/ML 20ML IV PRN; -LACTATED RINGER'S 1000ML 1,000 ML IV SCH; -LIDOCAINE 4% MPF SOAK 5 ML = 1 DOSE TOP ONE; -LIDOCAINE HCL 2% 2 ML VIAL (20MG/ML) ONE; -LIDOCAINE/EPINEPHRINE 1% 20 ML VIAL ONE; -METOCLOPRAMIDE HCL INJ 5 MG/ML 2 ML VIAL IV PRN; -MoRPHine SULFATE 10 MG/ML CARP/VIAL IV PRN; -NAPR1TAB9 PO; -NEOSTIGMINE METHYLSULFATE 5 MG/5 ML SYR ONE; -OMEG10007 PO; -ONDANSETRON INJ 2 MG/ML 2 ML VIAL IV PRN; -ONDANSETRON INJ 2 MG/ML 2 ML VIAL ONE; -OXYMETAZOLINE HCL 0.05% NA SPR 15 ML BTL PRN; -OXYMETAZOLINE HCL 0.05% NA SPR 15 ML BTL SCH; -PHENYLEPHRINE 100MCG/ML 5ML SYR IV PRN; -PROPOFOL IV EMULSION 10 MG/ML 20 ML VIAL IV ONE; -ROCURONIUM BROMIDE 10 MG/ML 5 ML VIAL IV ONE
--- NOTE | 2017-12-04 12:52 | MAMMOGRAPHY REPORT ---
UNILATERAL LEFT DIGITAL DIAGNOSTIC MAMMOGRAM TOMOSYNTHESIS AND TARGETED LEFT ULTRASOUND: 12/04/2017 CLINICAL HISTORY: 67-year-old woman called back from screening mammography for a 7 mm focal asymmetry in the upper outer anterior left breast. History of prior benign right breast biopsy. TECHNIQUE: Spot compression left CC and MLO tomosynthesis images were obtained. COMPARISON: Comparison is made to exams dated: 11/20/2017 mammogram, 08/04/2015 mammogram, 02/01/2015 ma mmogram, 08/31/2014 mammogram, 08/13/2014 mammogram, and 08/13/2014 ultrasound - [facility]. BREAST COMPOSITION: There are scattered areas of fibroglandular density in the left breast. FINDINGS: The spot compression left cc tomosynthesis view demonstrates a persistent 7 mm nodular asy mmetry in the lateral anterior breast. This finding is less conspicuous on the spot compression MLO view. No definite area of architectural distortion. Further evaluation with ultrasound was performe d. Targeted ultrasound was performed in the lateral left breast. In the 2:00 to 3:00 periareolar region , there is a hypoechoic mixed solid and cystic mass measuring 7.3 x 4.9 x 10.1 mm, with irregular and indistinct borders. This could correlate with the mammographic finding and is indeterminate given t he solid nature. Definitive characterization with an ultrasound-guided core biopsy is recommended. IMPRESSION: ACR BI-RADS CATEGORY 4: SUSPICIOUS, TARGETED ULTRASOUND ACR BI-RADS CATEGORY 4: SUSPICIO US 1. Ultrasound-guided core biopsy is recommended for irregular and indistinct hypoechoic, predominant ly solid 7 mm mass in the 2:00 to 3:00 periareolar left breast, thought to correlate with the mammogr aphic finding. These results and recommendations were discussed with the patient at the time of the exam. She tenta tively scheduled the biopsy prior to leaving her department. Approximately 10% of breast cancers are not detected with mammography. A negative mammographic report should not delay biopsy if a clinically suggestive mass is present. Meghana Omalley M.D. ay/:12/04/2017 12:21:38 Machine Clipper: Opal ORTIZ)([place]), [facility] letter sent: Abnormal 4/5 BI-RADS Code: ACR BI-RADS Category 4: Suspicious Ultrasound BI-RADS: ACR BI-RADS Category 4: Suspici ous
== END | disposition home or self-care (01) ==
LOC: C.MAMM 10:32
PROVIDERS: ATTEND Internal Medicine
DX: R92.8 Other abnormal and inconclusive findings on diagnostic imaging of breast (principal); N63.20 Unspecified lump in the left breast, unspecified quadrant

== ENCOUNTER → 2017-12-06 | Outpatient (CLI) | payer OTHER ==
[2017-12-06 13:57] LABS: HEMOGLOBIN A1C 5.8 % (4.5-5.6)
[2017-12-06 14:20] LABS: BLOOD UREA NITROGEN 15 mg/dl (7-18); CALCIUM 9.6 mg/dl (8.5-10.1); CARBON DIOXIDE 27 mmol/L (21-32); CREATININE 0.79 mg/dl (0.60-1.20); GLUCOSE 87 mg/dl (70-99); POTASSIUM 3.6 mmol/L (3.5-5.1); SODIUM 137 mmol/L (136-145)
[2017-12-06 14:23] LABS: CHOLESTEROL 244 mg/dl (0-200); LDL CHOLESTEROL (DIRECT) 162 mg/dl
== END | disposition home or self-care (01) ==
LOC: C.LABSPEC 12:36
PROVIDERS: ATTEND Internal Medicine
DX: R73.9 Hyperglycemia, unspecified (principal); E78.5 Hyperlipidemia, unspecified; M19.90 Unspecified osteoarthritis, unspecified site; M85.80 Other specified disorders of bone density and structure, unspecified site

== ENCOUNTER → 2017-12-12 | Outpatient (CLI) | payer OTHER ==
--- NOTE | 2017-12-12 10:09 | Discharge Instructions ---
Discharge Instructions Procedure Procedure Date: Dec 12, 2017. Reason for visit: Left Mass. Discharge Discharge Date: Dec 12, 2017. Discharge Diagnosis: post left breast ultrasound guided core biopsy Medications Restart Stopped Medication(s): May restart Aspirin and vitamins this evening or tomorrow as long as not soaking through the bandages. Instructions Activity Recommendations: Additional Limitations (see below) Return to School/Work: no limitations Recommended Home Diet: No Limitations Provider Instructions: ACTIVITY RECOMMENDATIONS: * No lifting, pushing, pulling or exercising the affected side for three days. RETURN TO SCHOOL/WORK: * You may return to work/school after the procedure, but do not perform any strenuous activities for 24 to 48 hours. MEDICATIONS: * Tylenol (two 325 mg) every four to six hours if needed for mild pain (if not allergic to Tylenol). DIET: * Resume previous diet. SPECIAL CARE INSTRUCTIONS: * Keep biopsy site dry for 24 hours. May shower after 24 hours, but do not soak (bathe) incision. * May remove Tegaderm (plastic patch) tomorrow AFTER showering. * Leave the steri-strips on for one week. Allow the steri-strips to fall off by themselves. If not off after one week, you may remove them. You may place a Bandaid crosswise over the strips, if desired. * Apply ice 10 minutes on and 10 minutes off as needed. * Wear a bra at bedtime to sleep more comfortably for 2-3 days. * Your referring physician should have the results after approximately 5 to 7 business days. * Call for unusual bleeding, fever, drainage, etc or if you have any questions call [phone] during normal business hours or after hours call Dr Omalley, . FOLLOW UP VISIT: Follow-up with Referring Physician as scheduled. Allergies Coded Allergies: Ciprofloxacin (Verified Allergy, Severe, TENDON RUPTURE, 11/23/17) Latex1 -Allergic Contact Dermititis (Verified Allergy, Mild, CONTACT DERMITITIS, 11/23/17) Gluten (Verified Allergy, Unknown, GI SYMPTOMS/CELIAC'S DISEASE, 11/23/17) Penicillins (Verified Allergy, Unknown, RASH, 11/23/17) SPECIFICALLY AMOXICILLIN Sulfa Drugs (Verified Allergy, Unknown, RASH, 11/06/17) Codeine (Verified Adverse Reaction, Unknown, N/V, 11/23/17) Meperidine (Verified Adverse Reaction, Unknown, "FELT LOOPY", 11/23/17) Swapna Kunz Recommendations: Call your doctor if: * Temperature above 101 degrees * Pain not relieved by pain medicine ordered * There is increased drainage or redness from any incision * You have any unanswered questions or concerns. Your Doctors Instructions noted above were prepared by provider Meghana Omalley. Patient Signature Section: Patient Instructions Signature Page Iraida Thapa Patient (or Guardian) Signature/Date: I have read and understand the instructions given to me by my caregivers. Caregiver/RN/Doctor Signature/Date: The above-named patient and/or guardian has received patient instructions on this date. + Original Patient Signature Page (only) stays with chart. Please make copy for patient.
--- NOTE | 2017-12-12 15:12 | MAMMOGRAPHY REPORT ---
ULTRASOUND GUIDED BIOPSY LEFT BREAST: 12/12/2017 CLINICAL HISTORY: Indeterminate irregular hypoechoic 10 mm mass in the 2:00 to 3:00 periareolar left breast. Patient presents for ultrasound-guided core biopsy. COMPARISON: Comparison is made to exams dated: 08/31/2014 mammogram, 02/01/2015 mammogram, 08/04/2015 azucena mogram, 11/20/2017 mammogram, 12/04/2017 ultrasound, and 12/04/2017 mammogram - [facility] nter. PATIENT CONSENT: The procedure, risks and benefits were discussed with the patient and informed conse nt was obtained both verbally and in writing. Specific risks to this procedure include: bleeding, in fection, puncture of adjacent structure, nontarget biopsy, sampling error, pain, metal allergy and me dication reaction. PROCEDURE DESCRIPTION: A time out was performed and the left breast was agreed as the site of biopsy. The skin was prepped and draped in the usual sterile fashion. The irregular 10 mm hypoechoic mass in the 2:00 to 3:00 periareolar left breast was chosen as the target for biopsy. Subcutaneous and intra parenchymal 1% buffered lidocaine, with and without epinephrine, was administered as local anesthesia . A skin incision was made. Through the incision, 5 samples were taken with a 14 gauge Achieve biops y device. A ribbon shaped metallic marker was placed at the biopsy site. Hemostasis was achieved afte r manual compression. The patient tolerated the procedure well and there was no immediate complicatio n. The samples were sent to the pathology department in an appropriately labeled container. Postprocedure left CC and ML tomosynthesis images were obtained. A new ribbon-shaped biopsy marker c lip is seen in the 2:00 anterior left breast. Visualization of the parenchyma is obscured by a 3.5 x 1.8 cm hematoma but the clip appears to be in a good location to correspond to the previously observ ed focal asymmetry. Pending pathology results, may consider follow-up diagnostic mammograms in 6 mon ths, to assess for definitive mammographicsonographic correlation given the hematoma after the biops y. IMPRESSION: ULTRASOUND GUIDED BIOPSY Status post ultrasound-guided core biopsy of an ill-defined and irregular hypoechoic 10 mm mass in th e 2:00 periareolar left breast, with biopsy marker clip placed at the site. The patient will receive notification of the biopsy results from her referring physician. Pending pathology results, may consider follow-up diagnostic mammograms in 6 months, to assess for de finitive mammographicsonographic correlation given the hematoma after the biopsy. Meghana Omalley M.D. ay/:12/12/2017 13:50:42 Forest Ecologist: Opal ORTIZ)([place]), [facility]
--- NOTE | 2017-12-12 15:15 | MAMMOGRAPHY REPORT ---
UNILATERAL LEFT DIGITAL DIAGNOSTIC MAMMOGRAM TOMOSYNTHESIS WITH CAD: 12/12/2017 CLINICAL HISTORY: Status post ultrasound-guided core biopsy of an indeterminate 10 mm mass in the 2:0 0 periareolar left breast, thought to correlate with a mammographic focal asymmetry. Please refer to the report from left breast ultrasound-guided core biopsy performed at the same time for full detail. IMPRESSION: POST PROCEDURE IMAGING FOR MARKER PLACEMENT Please refer to the report from left breast ultrasound-guided core biopsy performed at the same time for full detail. Approximately 10% of breast cancers are not detected with mammography. A negative mammographic report should not delay biopsy if a clinically suggestive mass is present. Meghana Omalley M.D. ay/:12/12/2017 10:08:26 Taxicab Dispatcher: Sultana ORTIZ)(M), [facility] BI-RADS Code: Post Procedure Imaging For Marker Placement
== END | disposition home or self-care (01) ==
LOC: C.MAMM 09:18
PROVIDERS: ATTEND Internal Medicine
DX: N63.20 Unspecified lump in the left breast, unspecified quadrant (principal); N60.82 Other benign mammary dysplasias of left breast

== ENCOUNTER 2022-11-01 07:00 | Observation (INO) ==
--- NOTE | 2022-10-16 15:24 | PAT Medication Instructions ---
Medication Instructions Date of Service October 16, 2022 Home Medications Medication Instructions Recorded montelukast 10 mg tablet 10 mg PO PM #90 tabs 12/30/21 (Singulair) spironolactone 25 1 tab PO BID 90 days #180 tabs 12/30/21 mg-hydrochlorothiazide 25 mg tablet spironolactone 50 mg tablet 50 mg PO QAM #90 tabs 12/30/21 Klor-Con 10 10 mEq tablet,extended 30 meq PO TID 90 days #810 tabs 01/18/22 release (potassium chloride) baclofen 10 mg tablet 5 mg PO TID PRN Muscle Spasm #90 08/01/22 tabs atorvastatin 10 mg tablet 10 mg PO QPM #90 tabs 10/11/22 cyanocobalamin (vitamin B-12) 2,500 mcg sublingual tablet (Vitamin B-12) 2,500 mcg sublingual QAM multivitamin 1 tab PO QAM niacin 500 mg tablet 500 mg PO QPM omega 5-egy-tkp-fish oil 1,000 mg (120 mg-180 mg) capsule (Fish Oil) 1 tab PO PM melatonin 10 mg tablet 10 mg PO HS doxycycline hyclate 50 mg tablet 50 mg PO QAM latanoprost 0.005 % eye drops 1 drp ophthalmic (eye) HS omeprazole 40 mg capsule,delayed release 40 mg PO QAM montelukast 10 mg tablet (Singulair) 10 mg PO PM spironolactone 25 mg-hydrochlorothiazide 25 mg tablet 1 tab PO BID spironolactone 50 mg tablet 50 mg PO QAM Klor-Con 10 10 mEq tablet,extended release (potassium chloride) 30 meq PO TID cholecalciferol (vitamin D3) 50 mcg (2,000 unit) capsule 50 mcg PO QPM baclofen 10 mg tablet 5 mg PO TID PRN Muscle Spasm atorvastatin 10 mg tablet 10 mg PO QPM true os 1 tab PO BID cinnamon bark 500 mg capsule (Cinnamon) 500 mg PO QAM glucosamine sulf dipot chlr,msm,chond 550 mg-C 30 mg-elsy 1 mg capsule (Glucosamine Chondroitin) 1 cap PO QPM turmeric 400 mg capsule 400 mg PO QPM Continue as directed doxycycline hyclate 50 mg tablet 50 mg PO QAM STOP taking 2 weeks before surgery omega 9-ayp-xdy-fish oil 1,000 mg (120 mg-180 mg) capsule (Fish Oil) 1 tab PO PM true os 1 tab PO BID cinnamon bark 500 mg capsule (Cinnamon) 500 mg PO QAM glucosamine sulf dipot chlr,msm,chond 550 mg-C 30 mg-elsy 1 mg capsule (Glucosamine Chondroitin) 1 cap PO QPM turmeric 400 mg capsule 400 mg PO QPM STOP taking 48 hours before surgery niacin 500 mg tablet 500 mg PO QPM DO NOT take the morning of surgery cyanocobalamin (vitamin B-12) 2,500 mcg sublingual tablet (Vitamin B-12) 2,500 mcg sublingual QAM multivitamin 1 tab PO QAM spironolactone 25 mg-hydrochlorothiazide 25 mg tablet 1 tab PO BID spironolactone 50 mg tablet 50 mg PO QAM Klor-Con 10 10 mEq tablet,extended release (potassium chloride) 30 meq PO TID baclofen 10 mg tablet 5 mg PO TID PRN Muscle Spasm Take morning of surgery With a small sip of water, OTHERWISE NOTHING TO EAT OR DRINK AFTER MIDNIGHT: omeprazole 40 mg capsule,delayed release 40 mg PO QAM Take evening before surgery melatonin 10 mg tablet 10 mg PO HS latanoprost 0.005 % eye drops 1 drp ophthalmic (eye) HS montelukast 10 mg tablet (Singulair) 10 mg PO PM spironolactone 25 mg-hydrochlorothiazide 25 mg tablet 1 tab PO BID Klor-Con 10 10 mEq tablet,extended release (potassium chloride) 30 meq PO TID cholecalciferol (vitamin D3) 50 mcg (2,000 unit) capsule 50 mcg PO QPM baclofen 10 mg tablet 5 mg PO TID PRN Muscle Spasm (if needed) atorvastatin 10 mg tablet 10 mg PO QPM Other Notes If you have any questions please call us at [phone] or [phone] or [phone] or [phone]
--- NOTE | 2022-10-19 10:57 | Anesthesiology Consultation ---
Date of Service October 19, 2022 Assessment & Plan (1) Encounter for pre-operative examination: - COVID screening: Per assessment on 10/19: No known COVID-19 positive contacts or current COVID-19 related symptoms. Travel screen negative. Patient vaccinated. At surgeon discretion if preop Covid testing being done. - PCP office visit (10/11/22): "PATs next week. if all unremarkable, pt should be medically optimized for the procedure..Osteoporosis.. severe. discussed AT LENGTH the need for treatment but pt is refusing. I also advised that whatever she is taking OTC is not likely to be very helpful in this situation. pt showed understanding but unwilling to change her mind. very high risk of fracture reiterated." Preop testing done 10/19/22 were unremarkable. - Outpatient joint assessment: Pt currently scheduled for inpatient pathway. If surgeon requests review for outpatient joint pathway, patient is not recommended candidate for outpatient joint program from anesthesia standpoint. Chart Review Chart Review: Acceptable Risk for Surgery and Patient seen in Pre Admission Testing Teaching & Discussion Pre-Anesthesia Teaching/Discussion Notes: Instructed NPO after midnight before surgery,except medications with 15 cc of water. Medication instructions provided according to the PAT guidelines. History Surgery Operation Date: 11/01/22 09:15 Proposed Procedures p Right Reversed Total Shoulder Arthroplasty - [place] Silver MD Height/Weight Height: 4 ft 11 in Weight: 56.4 kg Allergies Allergy/AdvReac Type Severity Reaction Status Date / Time adhesive Allergy Mild Rash Verified 10/16/22 10:05 gluten Allergy Mild GI Verified 10/18/22 12:48 symptoms/celiac disease Penicillins Allergy Unknown Unknown Verified 10/16/22 10:05 amoxicillin Allergy Hives Verified 10/16/22 10:06 Sulfa (Sulfonamide Allergy Hives Verified 10/16/22 10:06 Antibiotics) ciprofloxacin AdvReac Severe Tendon Verified 10/18/22 12:48 rupture Medications Home Medications Medication Instructions Recorded Confirmed Last Taken cyanocobalamin (vitamin B-12) 2,500 mcg sublingual QAM 07/21/18 10/16/22 05/10/21 2,500 mcg sublingual tablet (Vitamin B-12) multivitamin 1 tab PO QAM 07/21/18 10/16/22 05/10/21 niacin 500 mg tablet 500 mg PO QPM 11/10/16/22 05/10/21 omega 3-uwt-kel-fish oil 1,000 mg 1 tab PO PM 07/21/18 10/16/22 05/10/21 (120 mg-180 mg) capsule (Fish Oil) melatonin 10 mg tablet 10 mg PO HS 09/18/18 10/16/22 05/10/21 doxycycline hyclate 50 mg tablet 50 mg PO QAM 05/01/19 10/16/22 05/10/21 latanoprost 0.005 % eye drops 1 drp ophthalmic (eye) HS 05/01/19 10/16/22 05/10/21 omeprazole 40 mg capsule,delayed 40 mg PO QAM 05/01/19 10/16/22 05/11/21 04:10 release montelukast 10 mg tablet 10 mg PO PM #90 tabs 12/30/21 10/16/22 Unknown (Singulair) spironolactone 25 1 tab PO BID 90 days #180 tabs 12/30/21 10/16/22 Unknown mg-hydrochlorothiazide 25 mg tablet spironolactone 50 mg tablet 50 mg PO QAM #90 tabs 12/30/21 10/16/22 Unknown Klor-Con 10 10 mEq tablet,extended 30 meq PO TID 90 days #810 tabs 01/18/22 10/16/22 Unknown release (potassium chloride) cholecalciferol (vitamin D3) 50 50 mcg PO QPM 05/31/22 10/16/22 Unknown mcg (2,000 unit) capsule atorvastatin 10 mg tablet 10 mg PO QPM #90 tabs 10/11/22 10/16/22 Unknown true os 1 tab PO BID 10/11/22 10/16/22 Unknown baclofen 10 mg tablet 5 mg PO TID PRN Muscle Spasm #90 10/16/22 Unknown tabs cinnamon bark 500 mg capsule 500 mg PO QAM 10/16/22 10/16/22 Unknown (Cinnamon) glucosamine sulf dipot 1 cap PO QPM 10/16/22 10/16/22 Unknown chlr,msm,chond 550 mg-C 30 mg-elsy 1 mg capsule (Glucosamine Chondroitin) turmeric 400 mg capsule 400 mg PO QPM 10/16/22 10/16/22 Unknown Past Medical History Medical History Asthma Cardiac murmur As child Celiac disease Glaucoma History of anemia History of duodenal ulcer History of DVT (deep vein thrombosis) 2020 RLE (post op) History of kidney stones History of squamous cell carcinoma Back s/p excision Hypertension Levoscoliosis Osteoarthritis Osteoporosis Pulmonary sequestration Rosacea Doxycyline 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 Stress incontinence Exercise / Class Metabolic Activity II 4-5 Yardwork/Stairs/Walk up hill (one FS (no CP, no SOB)) Past Family History Family History Sister Family history of diabetes mellitus Family history of reaction to anesthesia 2 sisters get nauseated Hypertension Mother Hypertension Myocardial infarction Father Hypertension Myocardial infarction Brother Hypertension Myocardial infarction Denies family history of Ovarian cancer Prostate cancer Breast cancer Colorectal cancer Past Surgical History Surgical History H/O eye surgery LEFT EYE (NODULES REMOVED VIA LASER) History of arthroscopy RT SHOULDER AND BICEP TENDON REPAIR History of colonoscopy History of endoscopic sinus surgery History of esophagogastroduodenoscopy (EGD) History of foot surgery Rt History of hand surgery Left History of hemorrhoidectomy History of herniorrhaphy History of nasal septoplasty History of squamous cell carcinoma excision History of surgery cystocele repair History of tooth extraction History of total abdominal hysterectomy and bilateral salpingo-oophorectomy History of total hip arthroplasty RT Past Anesthesia History No Hx of Anesthesia Complications and No Family Hx of Anesthesia Complications (except PONV for sisters) History of PONV No Hx of PONV and Hx of Motion Sickness (occasional) Social History Smoking Status: Never smoker Do You Dip or Chew Tobacco: No Hx Alcohol Use: Yes Alcohol type: wine alcohol intake frequency: holidays/special occasions only Hx Substance Use: No substance use type: does not use Review of Systems Patient denies chest pain, shortness of breath, dyspnea on exertion, fever, chills, cough, wheezing, palpitations. Physical Exam Vital Signs VITALS BP 131/66 P 57 TEMP 97.9 SP02 97%RA RESP 16 PHYSICAL Full cervical extension range of motion. Full TMJ range of motion. TMD 3.5 finger breaths Mallampati Score 2 Dentition: missing lower right molar Lungs: clear throughout to auscultation Cardiac: regular rate and rhythm, no murmurs noted Spine: normal Carotid arteries: negative bruit Extremities: no edema Lab Results Anesthesia Preop Results Results Anesthesia Widget: WBC 4.25 K/ul (4.8-10.8) L 10/19/22 Hgb 13.3 g/dl (12.0-16.0) 10/19/22 Hct 39.4 % (37.0-47.0) 10/19/22 Plt 265 K/uL (130-400) 10/19/22 Na 140 mmol/L (136-145) 10/19/22 K 4.0 mmol/L (3.5-5.1) 10/19/22 Cl 107 mmol/L (98-107) 10/19/22 CO2 28 mmol/L (21-32) 10/19/22 BUN 23 mg/dl (6-23) 10/19/22 Creat 0.65 mg/dl (0.6-1.2) 10/19/22 Glucose Level 92 mg/dl (70-99(Fasting)) 10/19/22 PT 10.4 Seconds (9.0-12.0) 10/19/22 PTT 28.0 Seconds (21.0-31.0) 10/19/22 INR 1.0 (0.9-1.1) 10/19/22 HA1c 5.6 % (4.5-5.6) 10/19/22 Urine Color Yellow 10/19/22 Urine Appearance Clear (Clear) 10/19/22 Urine pH 6.5 (4.5-7.5) 10/19/22 Urine Specific [place] 1.007 (1.000-1.030) 10/19/22 Urine Protein Negative (Negative) 10/19/22 Urine Glucose (UA) Negative (Negative) 10/19/22 Urine Ketones Negative (Negative) 10/19/22 Urine Blood Negative (Negative) 10/19/22 Urine Nitrite Negative (Negative) 10/19/22 Urine Bilirubin Negative (Negative) 10/19/22 Urine Urobilinogen Negative (Negative) 10/19/22 Urine Leukocyte Esterase Negative (Negative) 10/19/22 Blood Type O Positive 10/19/22 Antibody Screen NEGATIVE 10/19/22 Testing Electrocardiogram Date: 10/19/22 SB at 59bpm. Chest X-Ray Date: 10/19/22 FINDINGS: PA and lateral chest radiographs are compared to study dated 05/03/2021. Correlation is made with chest CT dated 10/18/2006. The cardiomediastinal silhouette is unremarkable. Chronic interstitial thickening is similar to previous. There is mild bibasilar scarring/atelectasis. The lungs and pleural spaces are otherwise clear. There is no pneumothorax. The skeletal structures are osteopenic. The bony thorax appears intact. Degenerative change and scoliosis is noted in the spine. IMPRESSION: No active disease in the chest. COVID-19 Risk Screen Screening Information COVID-19 Screen Date: 10/19/22 Exposure 21 Days Family/Household +COVID Last 21 Days: No Exposure 10 Days Any COVID Exposure Last 10 Days: No Symptoms Last 10 Days Experienced COVID Sx Last 10 Days: No + COVID 0-90 Days COVID + in Last 0-90 Days: No
--- NOTE | 2022-10-30 10:00 | History & Physical Report ---
Date of Service October 30, 2022 Assessment & Plan (1) Rotator cuff arthropathy of right shoulder: Plan: Treatment options discussed with the patient. She has failed conservative measures. She would like to proceed with surgical intervention. Risks, benefits and alternatives to surgery including but not limited to infection, DVT, pain, stiffness, need for revision surgery, damage to blood vessels, damage to nerves, PE, , were discussed with the patient and they wish to proceed. Plan for right reverse total shoulder arthroplasty scheduled for November 01 at [facility] with Dr. Silver. Plan on aspirin 81 mg twice daily for 1 month postop for DVT prophylaxis. All questions answered. She will follow-up postop. History of Present Illness Chief Complaint: Right shoulder pain Primary Care Provider: Janie Courtney MD 72-year-old female with past medical history significant for asthma, celiac, history of DVT, hypertension, who presents with ongoing right shoulder pain. Pain is interfering with her daily activities. She has failed conservative measures. She would like to proceed with surgical invention. Patient denies headaches, sweats, fevers, chills, double vision, blurred vision, cough, sore throat, dysphagia, chest pain, sob, wheezing, n/v/d/c, numbness, tingling, fatigue, urinary symptoms, mood disorders. ROS positive for right shoulder pain and stiffness. Allergies Allergy/AdvReac Type Severity Reaction Status Date / Time adhesive Allergy Mild Rash Verified 10/16/22 10:05 gluten Allergy Mild GI Verified 10/18/22 12:48 symptoms/celiac disease Penicillins Allergy Unknown Unknown Verified 10/16/22 10:05 amoxicillin Allergy Hives Verified 10/16/22 10:06 Sulfa (Sulfonamide Allergy Hives Verified 10/16/22 10:06 Antibiotics) ciprofloxacin AdvReac Severe Tendon Verified 10/18/22 12:48 rupture Home Medications Medication Instructions Recorded Confirmed Type cyanocobalamin (vitamin B-12) 2,500 mcg sublingual QAM 07/21/18 10/16/22 History 2,500 mcg sublingual tablet (Vitamin B-12) multivitamin 1 tab PO QAM 07/21/18 10/16/22 History niacin 500 mg tablet 500 mg PO QPM 07/21/18 10/16/22 History omega 1-hjp-ssg-fish oil 1,000 mg 1 tab PO PM 07/21/18 10/16/22 History (120 mg-180 mg) capsule (Fish Oil) melatonin 10 mg tablet 10 mg PO HS 09/18/18 10/16/22 History doxycycline hyclate 50 mg tablet 50 mg PO QAM 05/01/19 10/16/22 History latanoprost 0.005 % eye drops 1 drp ophthalmic (eye) HS 05/01/19 10/16/22 History omeprazole 40 mg capsule,delayed 40 mg PO QAM 05/01/19 10/16/22 History release montelukast 10 mg tablet 10 mg PO PM #90 tabs 12/30/21 10/16/22 Rx (Singulair) spironolactone 25 1 tab PO BID 90 days #180 tabs 12/30/21 10/16/22 Rx mg-hydrochlorothiazide 25 mg tablet spironolactone 50 mg tablet 50 mg PO QAM #90 tabs 12/30/21 10/16/22 Rx Klor-Con 10 10 mEq tablet,extended 30 meq PO TID 90 days #810 tabs 01/18/22 10/16/22 Rx release (potassium chloride) cholecalciferol (vitamin D3) 50 50 mcg PO QPM 05/31/22 10/16/22 History mcg (2,000 unit) capsule atorvastatin 10 mg tablet 10 mg PO QPM #90 tabs 10/11/22 10/16/22 Rx true os 1 tab PO BID 10/11/22 10/16/22 History baclofen 10 mg tablet 5 mg PO TID PRN Muscle Spasm #90 10/16/22 Rx tabs cinnamon bark 500 mg capsule 500 mg PO QAM 10/16/22 10/16/22 History (Cinnamon) glucosamine sulf dipot 1 cap PO QPM 10/16/22 10/16/22 History chlr,msm,chond 550 mg-C 30 mg-elsy 1 mg capsule (Glucosamine Chondroitin) turmeric 400 mg capsule 400 mg PO QPM 10/16/22 10/16/22 History fexofenadine 180 mg tablet 180 mg PO DAILY 10/20/22 10/20/22 History zinc 50 mg tablet 50 mg PO DAILY 10/20/22 10/20/22 History Past Med/Surg History Medical History Asthma Cardiac murmur As child Celiac disease Glaucoma History of anemia History of duodenal ulcer History of DVT (deep vein thrombosis) 2020 RLE (post op) History of kidney stones History of squamous cell carcinoma Back s/p excision Hypertension Levoscoliosis Osteoarthritis Osteoporosis Pulmonary sequestration Rosacea Doxycyline 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 Stress incontinence Surgical History H/O eye surgery LEFT EYE (NODULES REMOVED VIA LASER) History of arthroscopy RT SHOULDER AND BICEP TENDON REPAIR History of colonoscopy History of endoscopic sinus surgery History of esophagogastroduodenoscopy (EGD) History of foot surgery Rt History of hand surgery Left History of hemorrhoidectomy History of herniorrhaphy History of nasal septoplasty History of squamous cell carcinoma excision History of surgery cystocele repair History of tooth extraction History of total abdominal hysterectomy and bilateral salpingo-oophorectomy History of total hip arthroplasty RT Family History Sister Family history of diabetes mellitus Family history of reaction to anesthesia 2 sisters get nauseated Hypertension Mother Hypertension Myocardial infarction Father Hypertension Myocardial infarction Brother Hypertension Myocardial infarction Denies family history of Ovarian cancer Prostate cancer Breast cancer Colorectal cancer Social History Smoking Status: Never smoker Second Hand Exposure: No; Hx Alcohol Use: Yes Alcohol type: wine Hx Substance Use: No Preferred Language: Moldovan Communication Ability: Effective Title Curator Required: No Beliefs That Will Affect Care: None marital status: Current Living Situation: Spouse current occupational status: retired How many Children do You have: 2 Feels Safe at Home: Yes Childhood Exposure to Second-Hand Smoke: Yes caffeine: Yes (tea) Dental Care, Regularly: Yes Physical Activity Frequency: Daily Physical Activity Frequency Comment: walking Seatbelt Use: always Sunscreen Use: Yes Assistive Devices: Glasses Review of Systems All systems reviewed & are unremarkable except as noted in HPI & below Physical Exam Constitutional: well developed and well nourished; no acute distress Eyes: PERRL, conjunctivae normal, anicteric sclerae ENMT: external ear and nose normal, oropharynx normal Neck: trachea midline, no thyromegaly Respiratory: normal respiratory effort, lungs clear to auscultation Cardiovascular: RRR, no murmur, no edema Musculoskeletal: Right shoulder: Tenderness anterolateral acromion. Positive impingement signs. Positive belly press. Weakness with strength testing. 3/5 abduction, 3/5 external rotation, 3+/5 internal rotation. Abduction to 90 degrees, forward flexion to 120 degrees, external rotation 30 degrees. Skin: no rashes, warm and dry Neurologic: patellar DTR's 2+ bilat, sensation intact Psychiatric: A+Ox3, euthymic affect Results & Data ([facility]) Diagnostic Findings Right shoulder X-rays demonstrate proximal migration of her humeral head consistent with rotator cuff arthropathy. MRI has shown massive retracted full- thickness tear of her rotator cuff.
[~2022-11-01 07:00] MED LIST changes: +ACETAMINOPHEN 500 MG TAB PO SCH; -BACL10TA PO; -BIOT5000 PO; +BUPIVACAINE 0.5 % 5 MG/1 ML PF 10ML VIAL ONE; -CALC-354 PO; -CHOL1TAB52 PO; -CYAN500T13 PO; +CeleBREX 200 MG CAP PO SCH; -DIPH25CA65 PO; -DXY50 PO; +FAMOTIDINE 20 MG TAB PO SCH; -FEXO1TAB49 PO; +GABAPENTIN 300 MG CAP PO SCH; +LR 15ML/HR IV SCH; +METOCLOPRAMIDE HCL 10 MG TABLET PO SCH; -MISCCAP46 PO; -MONT1TAB3 PO; -MULT-506 PO; -NIAC500T11 PO; -POTA10CA28 PO; -RANI150T3 PO; -SPIR1TAB71 PO; +TRANEXAMIC ACID 1,000 MG **IV Intra-op IV SCH; +TRANEXAMIC ACID 1,000 MG **IV Pre-op IV SCH; +VANCOMYCIN HCL 1,000 MG/270 ML BAG IV SCH; -VNTHFA/IN INH; +dexAMETHasone 4 MG TAB PO SCH
--- NOTE | 2022-11-01 07:40 | History & Physical Bridge Note ---
Date of Service November 01, 2022 History & Physical Bridge Note I have examined the patient, reviewed the History & Physical and in the interval since the performance of the History & Physical I have noted the following changes of clinical significance: no changes noted
[2022-11-01] MEDS ORDERED: LIDOCAINE 2% MPF LOCAL 5 ML VIAL INFIL ONE (07:47)
[2022-11-01] MEDS ORDERED: ROCURONIUM BROMIDE 10 MG/ML 5 ML VIAL IV ONE ×5 (07:47→07:51)
[2022-11-01] MEDS ORDERED: PROPOFOL IV EMULSION 10 MG/ML 20 ML VIAL IV ONE (07:47)
[2022-11-01] MEDS ORDERED: MIDAZOLAM HCL 1 MG/ML 2ML VIAL ONE (07:47)
[2022-11-01] MEDS ORDERED: ONDANSETRON INJ 2 MG/ML 2 ML VIAL ONE (07:52)
[2022-11-01] MEDS ORDERED: ePHEDrine sulfate 50 MG/ML AMP IV PRN (08:43)
[2022-11-01] MEDS ORDERED: ONDANSETRON INJ 2 MG/ML 2 ML VIAL IV PRN ×2 (08:43→13:35)
[2022-11-01] MEDS ORDERED: ATROPINE SULFATE 0.1 MG/ML 10ML SYR IV PRN (08:43)
[2022-11-01] MEDS ORDERED: HYDROmorphone INJ 1 MG/ML SYRINGE IV PRN (08:43)
[2022-11-01] MEDS ORDERED: fentaNYL citrate PF 100 MCG/2 ML VIAL ONE (08:54)
[2022-11-01] MEDS ORDERED: ePHEDrine sulfate 50 MG/ML SYR ONE (10:01)
--- NOTE | 2022-11-01 11:46 | Operative Report ---
Post Operative Report Pre & Post Diagnosis Operation Date: 11/01/22 09:10 Pre-Op Diagnosis: Right Shoulder chronic irreparable rotator cuff tear with rotator cuff arthropathy Post-Op Diagnosis: Right Shoulder chronic irreparable rotator cuff tear with rotator cuff arth ropathy I identified the patient and participated in the time-out.: Yes Procedure Operation Date: 11/01/22 09:10 Actual Procedures p Right Reversed Total Shoulder Arthroplasty(Right) - Reno Silver MD Surgeon Reno Silver MD Judicial Law Clerk Stan RODAS, Yonas RODAS Estimated Blood Loss 75 Findings Consistent with Post-Op Diagnosis Specimens Bone cut humeral head Drains 2 Hemovac Anesthesia Type General Regional Complications none Disposition Disposition: Recovery Room Indications 72 female chronic right shoulder pain. Patient has a chronic rotator cuff tear with an irreparable rotator cuff tear with proximal migration of the humerus. Description of Procedure The patient was taken to the operating room and anesthetized under regional block and general anesthetic. The patient was positioned on the operating table in a 30 beach chair position with a towel roll under the medial border of the right scapula. The arm was draped free to be able to manipulate the shoulder as needed. The right upper extremity was prepped and draped in usual sterile fashion. Exam demonstrated a thin individual with flexible right shoulder with 160 degrees forward elevation and external rotation 90 degrees and internal rotation to 75 degrees. An anterior deltopectoral approach was performed. A longitudinal incision was made in the deltopectoral interval. The skin was incised sharply. Subcutaneous flaps were elevated off the fascia. The cephalic vein was dissected out and retracted lateral with the deltoid. The clavipectoral fascia was divided at the lateral margin of the conjoined tendon and extended up to the CA ligament. The following findings were noted: The patient had a chronic rotator cuff tear with chronic bursitis overlying the subscapularis and supraspinatus. She had a large tear from the upper 50% of the subscapularis torn back through the infraspinatus with intact teres minor. There is arthritic changes in the superior head chronically ruptured and retracted biceps tendon and some moderate arthritic changes but no osteophytes around the humerus. The upper centimeter of the pectoralis was released for inferior exposure. A self-retaining retractor was placed. The biceps tendon findings demonstrated some vestigial biceps tendon type tissue. the small residual biceps tendon was tenodesed to the pectoralis tendon with #2 FiberWire. The proximal thin biceps vestigial tendon and sheath was resected. The circumflex vessels were identified and tied off with silk ties and divided laterally. The subscapularis tendon was then taken down off of the lesser tuberosity subperiosteally with a peel technique, a Vicryl traction suture was placed into the free edge and a subperiosteal dissection was performed along the neck of the humerus as the arm was gradually externally rotated exposing the humeral head. The humeral head findings demonstrated mild to moderate arthritic changes no osteophytes. A Shelton elevator was used to assist in releasing the capsule of the neck of the humerus. A Fukuda retractor was placed into the joint retracting the humeral head posterior. The labrum was resected and the capsule was released subperiosteally on the anterior-inferior glenoid staying on bone. Triceps was released. Posterior inferior glenoid capsule was also released. Glenoid findings demonstrated some surrounding osteophytes and moderate arthritic changes still with intact articular cartilage grade 2-3 articular wear. Tug test was performed documenting intact axillary nerve. Attention was then taken to the humeral preparation. The cutting guide was placed into the humeral head. It was positioned at 30 of retroversion. Oscillating saw was used to resect the humeral head giving the cut above the level of the posterior rotator cuff insertion site. The humerus was then prepared for the stem. I used the [facility] flex [facility]. The sizing broaches were used followed by trial broaches up to a size 3B long which had the appropriate fit and fill. The appropriate sized cut protector was placed. The humerus was then retracted posterior to the glenoid. The glenoid was sized for a 25 mm baseplate. The guide for the baseplate was positioned in a 10 inferior tilt and the central drill hole was made. The reamer for the 25 baseplate was used. The central drill was widened for the peg. The 25 mm hydroxyapatite coated aequalis standard post baseplate was impacted into position. The base plate was transfixed with superior and inferior locking screws and anterior and posterior compression screws with stable fixation. The fan reamer was used for the 36 millimeter glenoid sphere. After irrigation the 36 standard glenoid sphere was impacted onto the baseplate and the security screw was tightened. Attention was taken back to the humerus. The cut protector was removed and the plus or high offset humeral tray trial was assembled to the trial stem rotated appropriately to get bony coverage and then screwed in position. A trial reduction was performed. A +6 trial insert demonstrated good stability and no shuck. The trials were removed. 2 drill holes are made into the harder bone in the bicipital groove area and 2, #5 FiberWire sutures were placed transosseously. The canal was irrigated with pulsed lavage saline solution. The final component was assembled. The final component was ascend flex 3B long stem assembled to the plus or high offset tray and a +6, 36 reversed polyethylene insert. This was then impacted into the humerus with a tight press-fit. It was reduced to the glenoid sphere. Stability was verified. Subscapularis was repaired with the #5 FiberWire sutures using Jamel-Lyndon suture technique. Lateral row soft tissue repair was performed with #2 FiberWire [id number] sutures. The pectoralis was repaired with #2 FiberWire [id number] sutures . The arm was taken through a range of motion which demonstrated 135 degrees forward flexion 100 degrees abduction 85 degrees external rotation and 75 degrees internal rotation. There was no shuck.. The implant was stable through the range of motion tested. The wound was copiously irrigated. 2 Hemovac drains were placed. The deltopectoral interval was closed with [id number] #1 Vicryl sutures. The subcutaneous tissues were closed with 2-0 Vicryl sutures. The skin was closed with vick. Sterile dressings were applied and a shoulder immobilizer. Stan RODAS my physician hr assistant acted as first aid teacher throughout the procedure .He performed functions including patient positioning, arm positioning, prepping and draping, soft tissue retraction, instrument management, suture management and performed the subcutaneous and skin closure and will participate in the postoperative care of the patient. Yonas RODAS also assisted in the procedure and assisted in retraction and wound closure. I attest to the content of the Intraoperative Record and any orders documented therein. Any exceptions are noted below.
--- NOTE | 2022-11-01 12:48 | XRay Report ---
XR shoulder RT min 2V routine HISTORY: 72 years-old Female Post shoulder surgery right shoulder arthroplasty COMPARISON: Chest radiograph 10/19/2022 TECHNIQUE: 2 views of the right shoulder FINDINGS: Reverse right shoulder total joint arthroplasty demonstrates satisfactory alignment. Overlying skin s taples are present with surgical drainage catheter, expected postoperative soft tissue swelling with deep tissue air. No acute fracture or unexpected opaque foreign body. IMPRESSION: Reverse right shoulder total joint arthroplasty with expected postoperative changes. ACT 112: Negative or not required by law. The above report was generated using voice recognition software. It may contain grammatical, syntax o r spelling errors. Electronically signed by: Saúl Rubin M.D. 11/01/2022 12:46 PM
[2022-11-01] MEDS ORDERED: diphenhydrAMINE Capsule 25 MG CAP PO PRN (13:35)
[2022-11-01] MEDS ORDERED: MAGNESIUM HYDROXIDE SUSP 30 ML UDC PO PRN (13:35)
[2022-11-01] MEDS ORDERED: VANCOMYCIN CONSULT ACTIVE PRN (13:35)
[2022-11-01] MEDS ORDERED: bisacodyL 10 MG SUPP PR PRN (13:35)
[2022-11-01] MEDS ORDERED: METOCLOPRAMIDE HCL INJ 5 MG/ML 2 ML VIAL IV PRN (13:35)
[2022-11-01] MEDS ORDERED: NALOXONE HCL 0.4 MG/1 ML VIAL/CARP IV PRN (13:35)
[2022-11-01] MEDS ORDERED: BACLOFEN 10 MG TAB PO PRN (13:35)
[2022-11-01] MEDS ORDERED: HYDROmorphone INJ 0.5 MG/0.5 ML SYR IV PRN (13:35)
[2022-11-01] MEDS ORDERED: oxyCODONE HCL IR 5 MG TAB (IMMEDIATE RELEASE) PO PRN (13:35)
[2022-11-01] MEDS: SODIUM CHLORIDE 0.9% 1000ML 1,000 ML IV SCH ×2 (14:02→23:56)
[2022-11-01] MEDS: ACETAMINOPHEN 500 MG TAB PO SCH ×2 (15:02→20:34)
[2022-11-01] MEDS: POTASSIUM CHLORIDE 10 MEQ TABCR PO SCH ×2 (15:02→20:31)
[2022-11-01] MEDS ORDERED: SPIRONOLACTONE/HCTZ 25-25 PO SCH ×2 (17:00→21:00)
--- NOTE | 2022-11-01 17:22 | Hospitalist Consultation ---
Date of Consultation November 01, 2022 Assessment & Plan (1) Arthropathy of right shoulder: -Pain control, perioperative abx, DVT PPX, and IV fluids per the primary team -The patient is afebrile, hemodynamically stable ,and stable on RA -Patient is currently doing well post-op -Agree with AM BMP and CBC, we will review -Will obtain BMP tonight to ensure her electrolytes and renal function are stable, if so will restart antihypertensives tonight -Agree with daily pantoprazole -Switched patient to a gluten free diet due to her hx of Celiac disease -Thank you for allowing us to participate in the care of this patient, please reach out with any questions or concerns (2) Hyperlipidemia: -Continue statin (3) Hypertension: -Stable -If renal function and electrolytes are stable will restart HCTZ/spironolactone tonight Plan The patient was discussed with Dr. Rogers at the time of the admission Supervising Physician Co-Signing Physician Notes I personally saw and examined the patient. I verified all benson points and agree with Dionte Brown PA-C with the following exceptions and/or additions: 72 year old female POD #0 right reverse total shoulder arthroplasty. EBL 75ml. No current concerns or questions. O/E HS1+2, RRR, no murmurs, Chest CTAB, Abdo SNT, NV intact distal to surgery (radial pulse intact, cap refil < 2s, sensation intact in finger tips) A/P VTE/Pain/Bowel management per primary orthopedic team HTN / hypokalemia - discussed no chronic diagnosis for her substantial need for potassium replacement although she is also on HCTZ. Consider nephrology follow up on discharge. Previously taking spironolactone 50mg QAM and Aldactazide [25/25] BID but now down to Aldactazide [25/25] QAM - updated home meds to re flect this. Reportedly no worsening BP or fluid retention with this. Still taking potassium chloride 30 meq PO TID however. K 3.3 today although is yet to have any of her potassium. Will continue her usual doses of potassium, Aldactazide [25/25] with a hold on the HCTZ part if K < 3.5. History of Present Illness Reason for Consultation: Post-op medical management Requesting Physician: Reno Silver MD Attending Physician: Dr. Atilio Rogers History of Present Illness Iraida is a 72 year old female with a PMH significant for right renal artery stenosis, previous DVT, hyperlipidemia, Celiac Disease, HTN, and OA who presented to the [facility] on 11/01/22 for elective Right Reversed Total Shoulder Arthroplasty(Right) with Dr. Silver. Per review of the patient's vitals, she has been afebrile, hemodynamically stable, and stable on RA. Per the operative report, anesthesia was listed as "General", EBL was listed as 75 cc, and there were no reported intraoperative complications. At the time of the exam the patient was resting comfortably in her bedside chair, about to eat dinner. She states that she is feeling well post-op, her right UE is still currently numb from the nerve block otherwise she has no complaints. She confirms that she did not take her am BP meds today. She clarified that she had her DVT in the RLE approximately 2 years ago after vascular surgery. She completed a 6 month course of Eliquis for this. She has been on daily, low-dose, doxycycline for Rosacea. Please refer to Dr. Rogers's attestation for any changes to the treatment plan. Allergies Allergy/AdvReac Type Severity Reaction Status Date / Time adhesive Allergy Mild Rash Verified 11/01/22 07:29 gluten Allergy Mild GI Verified 11/01/22 07:29 symptoms/celiac disease Penicillins Allergy Unknown Unknown Verified 11/01/22 07:29 amoxicillin Allergy Hives Verified 11/01/22 07:29 Sulfa (Sulfonamide Allergy Hives Verified 11/01/22 07:29 Antibiotics) ciprofloxacin AdvReac Severe Tendon Verified 11/01/22 07:29 rupture Home Medications Medication Instructions Recorded Confirmed Type cyanocobalamin (vitamin B-12) 2,500 mcg sublingual QAM 07/21/18 11/01/22 History 2,500 mcg sublingual tablet (Vitamin B-12) multivitamin 1 tab PO QAM 07/21/18 11/01/22 History niacin 500 mg tablet 500 mg PO QPM 07/21/18 11/01/22 History omega 5-vop-ejv-fish oil 1,000 mg 1 tab PO PM 07/21/18 11/01/22 History (120 mg-180 mg) capsule (Fish Oil) melatonin 10 mg tablet 10 mg PO HS 09/18/18 11/01/22 History doxycycline hyclate 50 mg tablet 50 mg PO QAM 05/01/19 11/01/22 History latanoprost 0.005 % eye drops 1 drp ophthalmic (eye) HS 05/01/19 11/01/22 History omeprazole 40 mg capsule,delayed 40 mg PO QAM 05/01/19 11/01/22 History release montelukast 10 mg tablet 10 mg PO PM #90 tabs 12/30/21 11/01/22 Rx (Singulair) spironolactone 25 1 tab PO BID 90 days #180 tabs 12/30/21 11/01/22 Rx mg-hydrochlorothiazide 25 mg tablet spironolactone 50 mg tablet 50 mg PO QAM #90 tabs 12/30/21 11/01/22 Rx Klor-Con 10 10 mEq tablet,extended 30 meq PO TID 90 days #810 tabs 01/18/22 11/01/22 Rx release (potassium chloride) cholecalciferol (vitamin D3) 50 50 mcg PO QPM 05/31/22 11/01/22 History mcg (2,000 unit) capsule atorvastatin 10 mg tablet 10 mg PO QPM #90 tabs 10/11/22 11/01/22 Rx true os 1 tab PO BID 10/11/22 11/01/22 History baclofen 10 mg tablet 5 mg PO TID PRN Muscle Spasm #90 10/16/22 11/01/22 Rx tabs cinnamon bark 500 mg capsule 500 mg PO QAM 10/16/22 11/01/22 History (Cinnamon) glucosamine sulf dipot 1 cap PO QPM 10/16/22 11/01/22 History chlr,msm,chond 550 mg-C 30 mg-elsy 1 mg capsule (Glucosamine Chondroitin) turmeric 400 mg capsule 400 mg PO QPM 10/16/22 11/01/22 History fexofenadine 180 mg tablet 180 mg PO DAILY 10/20/22 11/01/22 History zinc 50 mg tablet 50 mg PO DAILY 10/20/22 11/01/22 History Patient History Medical History (Updated 11/01/22 @ 18:14 by Dionte Brown PA-C) Asthma Cardiac murmur As child Celiac disease Glaucoma History of anemia History of duodenal ulcer History of DVT (deep vein thrombosis) 2020 RLE (post op) History of kidney stones History of squamous cell carcinoma Back s/p excision Hypertension Levoscoliosis Osteoarthritis Osteoporosis Pulmonary sequestration Rosacea Doxycyline 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 Stress incontinence Surgical History H/O eye surgery LEFT EYE (NODULES REMOVED VIA LASER) History of arthroscopy RT SHOULDER AND BICEP TENDON REPAIR History of colonoscopy History of endoscopic sinus surgery History of esophagogastroduodenoscopy (EGD) History of foot surgery Rt History of hand surgery Left History of hemorrhoidectomy History of herniorrhaphy History of nasal septoplasty History of squamous cell carcinoma excision History of surgery cystocele repair History of tooth extraction History of total abdominal hysterectomy and bilateral salpingo-oophorectomy History of total hip arthroplasty RT Family History Sister Family history of diabetes mellitus Family history of reaction to anesthesia 2 sisters get nauseated Hypertension Mother Hypertension Myocardial infarction Father Hypertension Myocardial infarction Brother Hypertension Myocardial infarction Denies family history of Ovarian cancer Prostate cancer Breast cancer Colorectal cancer Social History Smoking Status: Never smoker Second Hand Exposure: No; Do You Dip or Chew Tobacco: No; Hx Alcohol Use: Yes Alcohol type: wine Hx Substance Use: No Preferred Language: Czech Communication Ability: Effective Salt Maker Required: No Beliefs That Will Affect Care: None marital status: Current Living Situation: Spouse current occupational status: retired How many Children do You have: 2 Feels Safe at Home: Yes Safety Concerns: Feels Safe At This Time Childhood Exposure to Second-Hand Smoke: Yes caffeine: Yes (tea) Dental Care, Regularly: Yes Physical Activity Frequency: Daily Physical Activity Frequency Comment: walking Seatbelt Use: always Sunscreen Use: Yes Assistive Devices: Glasses Review of Systems Review of Systems: Denies current fever, chills, headache, changes in vision, hearing, taste, and smell, chest pain, SOB, cough, abdominal pain, nausea, vomiting, diarrhea, hematemesis, melena, dysuria, hematuria, and recent falls. All systems have been reviewed and are otherwise negative. Physical Exam Physical Exam: Physical Exam: General: In no acute distress, stated age, well-nourished, good hygiene HEENT: Normocephalic, atraumatic, no scleral icterus, pupils around round, symmetrical, and reactive to light, moist mucus membranes, trachea midline, no thyromegaly Chest/Pulm: No respiratory distress, symmetrical chest expansion, clear breath sounds throughout Cardiac: RRR, no murmurs noted Abdomen: Negative for ascites and bruising, normoactive bowel sounds, soft, non-tender to palpation throughout Musculoskeletal: RUE currently wrapped and in sling with drain in place, patient with minimal strength in the RUE at this time due to nerve block Extremities: Radial, dorsalis pedis, and posterior tibial pulses are intact and symmetrical, no edema noted in the BL LE's Skin: Warm, dry, no rashes , lesions, or scars noted Neuro: Alert and oriented to person, place, month, year, and president, no focal defects, no tremors noted Psych: No acute distress, calm and cooperative during the exam Results & Data Results & Data ([facility]) Vital Signs (Past 12 Hours) Vital Signs Temp Pulse Pulse Resp BP Pulse Ox O2 Del Method 11/01/22 14:43 36.4 C L 76 18 130/67 96 Room Air 11/01/22 13:51 72 18 148/76 H 97 Room Air 11/01/22 13:14 Room Air 11/01/22 13:05 36.4 C L 77 16 158/89 H 96 Room Air 11/01/22 12:45 36.3 C L 76 20 153/85 H 96 Room Air 11/01/22 12:35 80 22 154/92 H 97 Room Air 11/01/22 12:25 80 20 140/81 98 Room Air 11/01/22 12:15 79 14 139/86 96 Room Air 11/01/22 12:05 81 18 152/85 H 98 Room Air 11/01/22 11:55 86 16 145/81 H 97 Room Air 11/01/22 11:49 36.1 C L 86 16 149/87 H 97 Room Air 11/01/22 07:22 36.6 C 66 20 151/79 H 98 Room Air Diagnostic Findings Shoulder X-Ray 11/01/22 11:58 XR shoulder RT min 2V routine HISTORY: 72 years-old Female Post shoulder surgery right shoulder arthroplasty COMPARISON: Chest radiograph 10/19/2022 TECHNIQUE: 2 views of the right shoulder FINDINGS: Reverse right shoulder total joint arthroplasty demonstrates satisfactory alignment. Overlying skin vick are present with surgical drainage catheter, expected postoperative soft tissue swelling with deep tissue air. No acute fracture or unexpected opaque foreign body. IMPRESSION: Reverse right shoulder total joint arthroplasty with expected postoperative changes. ACT 112: Negative or not required by law. The above report was generated using voice recognition software. It may contain grammatical, syntax or spelling errors. Electronically signed by: Saúl Rubin M.D. 11/01/2022 12:46 PM PG Care Time/CCT Total # of Minutes Spent Total Time Spent with Patient: Total time spent is greater than 50% in coordination of care (as documented) at patient's floor/unit and/or counseling patient: C[place] [address] IN/OBS CONSULT LVL 4,60M Patient Type Established Medical Decision Making Moderate Complexity Diagnoses Arthropathy of right shoulder M19.011 Hyperlipidemia E78.5 Hypertension I10
[2022-11-01 18:29] LABS: BUN Creatinine Ratio 32.4 (10-20); Calcium 8.6 mg/dl (8.5-10.1); Creatinine Clr Calc Pharmacy 54.9 ml/min; Est GFR (African American) 99.9 ml/min; Est GFR (Non-African American) 86.2 ml/min; Potassium 3.3 mmol/L (3.5-5.1)
[2022-11-01] MEDS ORDERED: VANCOMYCIN HCL 750 MG in SODIUM CHLORIDE 0.9% 250 ML IV ONE (20:00)
[2022-11-01] MEDS: ASPIRIN 81 MG ECTAB PO SCH (20:26)
[2022-11-01] MEDS: DOCUSATE SODIUM 100 MG CAP PO SCH (20:28)
[2022-11-01] MEDS ORDERED: SPIRONOLACTONE 25 MG TAB PO ONE (21:00)
[2022-11-01] MEDS ORDERED: CHOLECALCIFEROL 1,000 UNITS 25 MCG TAB PO SCH (21:00)
[2022-11-01] MEDS ORDERED: SENNA 8.6 MG TAB PO SCH (21:00)
[2022-11-01] MEDS ORDERED: LATANOPROST 0.005% OP SOLN 2.5 ML BTL OPB SCH (21:00)
[2022-11-01] MEDS ORDERED: NIACIN 500 MG TAB PO SCH (21:00)
[2022-11-01] MEDS ORDERED: ATORVASTATIN 10 MG TAB PO SCH (21:00)
[2022-11-01] MEDS ORDERED: MONTELUKAST SODIUM 10 MG TABLET PO SCH (21:00)
[2022-11-01] MEDS ORDERED: VANCOMYCIN HCL 750 MG in SODIUM CHLORIDE 0.9% 500 ML IV SCH (22:00)
[2022-11-01] MEDS ORDERED: MELATONIN 3 MG TAB PO SCH (22:00)
[2022-11-01] MEDS ORDERED: diphenhydrAMINE Capsule 25 MG CAP PO ONE (23:43)
[2022-11-02] MEDS: ACETAMINOPHEN 500 MG TAB PO SCH (05:48)
[2022-11-02 06:41] LABS: Basophils # (auto) 0.07 K/uL (0-0.2); Basophils % (auto) 1.2 %; Eosinophils # (auto) 0.07 K/uL (0-0.50); Eosinophils % (auto) 1.2 %; Hematocrit (blood only) 34.3 % (37.0-47.0); Hemoglobin 11.6 g/dl (12.0-16.0); Immature Granulocytes # (auto) 0.02 K/uL (0.01-0.20); Immature Granulocytes % (auto) 0.4 %; Lymphocytes # (auto) 1.53 K/uL (1.2-3.4); Lymphocytes % (auto) 26.9 %; Mean Corpuscular Hemoglobin 32.6 pg (25.0-34.0); Mean Corpuscular Hgb Conc 33.8 g/dL (32.0-36.0); Mean Corpuscular Volume 96.3 fL (80.0-100.0); Mean Platelet Volume 9.1 fL (9.4-12.4); Monocytes # (auto) 0.51 K/uL (0.11-0.59); Neutrophils # (auto) 3.48 K/uL (1.40-6.50); Neutrophils % (auto) 61.3 %; Platelet Count 219 K/uL (130-400); RDW Coefficient of Variation 12.6 % (11.5-14.5); RDW Standard Deviation 45.5 fL (36.4-46.3); Red Blood Count 3.56 M/uL (4.20-5.40); White Blood Count 5.68 K/ul (4.8-10.8)
[2022-11-02 07:39] LABS: Anion Gap 3 (3-11); BUN Creatinine Ratio 35.8 (10-20); Blood Urea Nitrogen 19 mg/dl (6-23); Calcium 8.3 mg/dl (8.5-10.1); Carbon Dioxide 25 mmol/L (21-32); Chloride 112 mmol/L (98-107); Creatinine Clr Calc Pharmacy 70.4 ml/min; Est GFR (African American) 108.4 ml/min; Est GFR (Non-African American) 93.5 ml/min; Glucose 90 mg/dl (70-99(Fasting)); Sodium 140 mmol/L (136-145)
--- NOTE | 2022-11-02 08:03 | Hospitalist Progress Note ---
Date of Service November 02, 2022 Assessment & Plan (1) Arthropathy of right shoulder: Plan: POD# 1 s/p RIGHT reverse shoulder with Dr Silver EBL 75cc WBC wnl, afebrile Pain managemnet/bowel regimen/PT/OT/DVT prophylaxis per primary service Protonix daily Gluten free diet Electrolytes reviewed and stable Patient planning for d/c today, labs stable and patient feeling well. Ok to d/c from medicine standpoint. (2) Hyperlipidemia: Plan: Continue statin (3) Hypertension: Plan: -Stable continues on HCTZ/spironolactone as kidney function stable Plan hospitalist service will sign off at this time please call with any questions/concerns Admission and Anticipated Discharge Date Admission Date: November 01, 2022 Supervising Physician Co-Signing Physician Notes The patient was not seen by me. The chart was reviewed. Case discussed with ADRIANNA Lane. Agree with assessment and plan Subjective eval this morning, up in chair. numbness/tingling resolved, sensation intact. having pain to the shoulder, controlled w/ ordered medications no fever/chills, chest pain, nausea/vomiting. good appetite. hopeful for d/c later today if ok w/ orthopedics. Physical Exam Physical Exam: General: WD/WN female sitting up in recliner eating breakfast, NAD HEENT: normocephalic, atraumatic, mmm, trachea midline Resp: CTAB, no w/c, on room air CV: RRR, no m/r/g, no pitting edema/calf tenderness GI: +BS, soft/NT MSK/Neuro: dressing to R shoulder c/d/i, fingers mobile, sensation intact and pulses palpable sling in place Psych: Aox3, pleasant and cooperative Results & Data Results & Data ([facility]) Vital Signs (Past 12 Hours) Vital Signs Temp Pulse Resp BP Pulse Ox O2 Del Method 11/02/22 07:54 36.7 C 66 16 135/69 95 Room Air 11/02/22 03:00 36.8 C 69 16 119/63 96 Room Air 11/01/22 23:54 36.7 C 60 16 153/74 H 99 Room Air Laboratory Results 11/02/22 11/02/22 11/02/22 Range/Units 07:42 06:07 06:07 WBC 5.68 (4.8-10.8) K/ul RBC 3.56 L (4.20-5.40) M/uL Hgb 11.6 L (12.0-16.0) g/dl Hct 34.3 L (37.0-47.0) % MCV 96.3 (80.0-100.0) fL MCH 32.6 (25.0-34.0) pg MCHC 33.8 (32.0-36.0) g/dL RDW Std Deviation 45.5 (36.4-46.3) fL RDW Coeff of Shelli 12.6 (11.5-14.5) % Plt Count 219 (130-400) K/uL MPV 9.1 L (9.4-12.4) fL Immature Gran % (Auto) 0.4 % Neut % (Auto) 61.3 % Lymph % (Auto) 26.9 % [place] % (Auto) 9.0 % Eos % (Auto) 1.2 % Baso % (Auto) 1.2 % Neut # (Auto) 3.48 (1.40-6.50) K/uL Lymph # (Auto) 1.53 (1.2-3.4) K/uL [place] # (Auto) 0.51 (0.11-0.59) K/uL Eos # (Auto) 0.07 (0-0.50) K/uL Baso # (Auto) 0.07 (0-0.2) K/uL Immature Gran # (Auto) 0.02 (0.01-0.20) K/uL Sodium 140 (136-145) mmol/L Potassium Pending TNP (3.5-5.1) mmol/L Chloride 112 H (98-107) mmol/L Carbon Dioxide 25 (21-32) mmol/L Anion Gap 3 (3-11) BUN 19 (6-23) mg/dl Creatinine 0.53 L (0.6-1.2) mg/dl Est Cr Clr Drug Dosing 70.4 ml/min Est GFR ( Amer) 108.4 ml/min Est GFR (Non-Af Amer) 93.5 ml/min BUN/Creatinine Ratio 35.8 H (10-20) Glucose 90 (70-99(Fasting)) mg/dl Calcium 8.3 L (8.5-10.1) mg/dl 11/01/22 Range/Units 17:35 WBC (4.8-10.8) K/ul RBC (4.20-5.40) M/uL Hgb (12.0-16.0) g/dl Hct (37.0-47.0) % MCV (80.0-100.0) fL MCH (25.0-34.0) pg MCHC (32.0-36.0) g/dL RDW Std Deviation (36.4-46.3) fL RDW Coeff of Shelli (11.5-14.5) % Plt Count (130-400) K/uL MPV (9.4-12.4) fL Immature Gran % (Auto) % Neut % (Auto) % Lymph % (Auto) % [place] % (Auto) % Eos % (Auto) % Baso % (Auto) % Neut # (Auto) (1.40-6.50) K/uL Lymph # (Auto) (1.2-3.4) K/uL [place] # (Auto) (0.11-0.59) K/uL Eos # (Auto) (0-0.50) K/uL Baso # (Auto) (0-0.2) K/uL Immature Gran # (Auto) (0.01-0.20) K/uL Sodium 140 (136-145) mmol/L Potassium 3.3 L (3.5-5.1) mmol/L Chloride 107 (98-107) mmol/L Carbon Dioxide 26 (21-32) mmol/L Anion Gap 7 (3-11) BUN 22 (6-23) mg/dl Creatinine 0.68 (0.6-1.2) mg/dl Est Cr Clr Drug Dosing 54.9 ml/min Est GFR ( Amer) 99.9 ml/min Est GFR (Non-Af Amer) 86.2 ml/min BUN/Creatinine Ratio 32.4 H (10-20) Glucose 120 H (70-99(Fasting)) mg/dl Calcium 8.6 (8.5-10.1) mg/dl Diagnostic Findings Shoulder X-Ray 11/01/22 11:58 XR shoulder RT min 2V routine HISTORY: 72 years-old Female Post shoulder surgery right shoulder arthroplasty COMPARISON: Chest radiograph 10/19/2022 TECHNIQUE: 2 views of the right shoulder FINDINGS: Reverse right shoulder total joint arthroplasty demonstrates satisfactory alignment. Overlying skin vick are present with surgical drainage catheter, expected postoperative soft tissue swelling with deep tissue air. No acute fracture or unexpected opaque foreign body. IMPRESSION: Reverse right shoulder total joint arthroplasty with expected postoperative changes. ACT 112: Negative or not required by law. The above report was generated using voice recognition software. It may contain grammatical, syntax or spelling errors. Electronically signed by: Saúl Rubin M.D. 11/01/2022 12:46 PM PG Care Time/CCT Total # of Minutes Spent Total Time Spent with Patient: Total time spent is greater than 50% in coordination of care (as documented) at patient's floor/unit and/or counseling patient: Coding Level of Care Code 17036 SUB INP/OBS CARE 1/25MIN Diagnoses Arthropathy of right shoulder M19.011 Hyperlipidemia E78.5 Hypertension I10
--- NOTE | 2022-11-02 08:15 | Orthopedic Progress Note ---
Date of Service November 02, 2022 Assessment & Plan (1) Rotator cuff arthropathy of right shoulder: Plan: Postop day 1 status post right reverse total shoulder arthroplasty PT/OT protocols. Nonweightbearing right upper extremity. DVT prophylaxis-aspirin p.o. twice daily, SCDs, DONA garcia Pain management as written. Potassium level pending. DC planning-patient is planning for home discharge when stable. Admission and Anticipated Discharge Date Admission Date: November 01, 2022 Subjective Postop day 1 Patient sitting up in bed awake and alert. No complaints this morning. Pain is controlled. States she has some residual numbness in all of her fingers at this time. States that her arm feels a little bit heavy this morning. We discussed that that was the continued nerve block working and that this would resolve over time. She has had her potassium redrawn this morning. The initial blood draws that were taken ended up hemolyzing prior to doing the potassium. Current potassium level is still pending. Physical Exam Physical Exam: Dressings are clean, dry, and intact. Sling is in place. She does have good range of motion of her right wrist and fingers with noted residual decreased sensation. Cap refills less than 2 seconds. Results & Data ([facility]) Vital Signs (Past 12 Hours) Vital Signs Temp Pulse Resp BP Pulse Ox O2 Del Method 11/02/22 07:54 36.7 C 66 16 135/69 95 Room Air 11/02/22 03:00 36.8 C 69 16 119/63 96 Room Air 11/01/22 23:54 36.7 C 60 16 153/74 H 99 Room Air Laboratory Results Laboratory Results WBC 5.68 K/ul (4.8-10.8) 11/02/22 06:07 RBC 3.56 M/uL (4.20-5.40) L 11/02/22 06:07 Hgb 11.6 g/dl (12.0-16.0) L 11/02/22 06:07 Hct 34.3 % (37.0-47.0) L 11/02/22 06:07 MCV 96.3 fL (80.0-100.0) 11/02/22 06:07 MCH 32.6 pg (25.0-34.0) 11/02/22 06:07 MCHC 33.8 g/dL (32.0-36.0) 11/02/22 06:07 RDW Std Deviation 45.5 fL (36.4-46.3) 11/02/22 06:07 RDW Coeff of Shelli 12.6 % (11.5-14.5) 11/02/22 06:07 Plt Count 219 K/uL (130-400) 11/02/22 06:07 MPV 9.1 fL (9.4-12.4) L 11/02/22 06:07 Immature Gran % (Auto) 0.4 % 11/02/22 06:07 Neut % (Auto) 61.3 % 11/02/22 06:07 Lymph % (Auto) 26.9 % 11/02/22 06:07 [place] % (Auto) 9.0 % 11/02/22 06:07 Eos % (Auto) 1.2 % 11/02/22 06:07 Baso % (Auto) 1.2 % 11/02/22 06:07 Neut # (Auto) 3.48 K/uL (1.40-6.50) 11/02/22 06:07 Lymph # (Auto) 1.53 K/uL (1.2-3.4) 11/02/22 06:07 [place] # (Auto) 0.51 K/uL (0.11-0.59) 11/02/22 06:07 Eos # (Auto) 0.07 K/uL (0-0.50) 11/02/22 06:07 Baso # (Auto) 0.07 K/uL (0-0.2) 11/02/22 06:07 Immature Gran # (Auto) 0.02 K/uL (0.01-0.20) 11/02/22 06:07 Sodium 140 mmol/L (136-145) 11/02/22 06:07 Potassium TNP 11/02/22 06:07 Chloride 112 mmol/L (98-107) H 11/02/22 06:07 Carbon Dioxide 25 mmol/L (21-32) 11/02/22 06:07 Anion Gap 3 (3-11) 11/02/22 06:07 BUN 19 mg/dl (6-23) 11/02/22 06:07 Creatinine 0.53 mg/dl (0.6-1.2) L 11/02/22 06:07 Est Cr Clr Drug Dosing 70.4 ml/min 11/02/22 06:07 Est GFR ( Amer) 108.4 ml/min 11/02/22 06:07 Est GFR (Non-Af Amer) 93.5 ml/min 11/02/22 06:07 BUN/Creatinine Ratio 35.8 (10-20) H 11/02/22 06:07 Glucose 90 mg/dl (70-99(Fasting)) 11/02/22 06:07 Calcium 8.3 mg/dl (8.5-10.1) L 11/02/22 06:07 SARS-CoV-2, RNA, NAAT NEGATIVE (NEGATIVE) 11/01/22 07:10 Impressions Shoulder X-Ray 11/01/22 11:58 XR shoulder RT min 2V routine HISTORY: 72 years-old Female Post shoulder surgery right shoulder arthroplasty COMPARISON: Chest radiograph 10/19/2022 TECHNIQUE: 2 views of the right shoulder FINDINGS: Reverse right shoulder total joint arthroplasty demonstrates satisfactory alignment. Overlying skin vick are present with surgical drainage catheter, expected postoperative soft tissue swelling with deep tissue air. No acute fracture or unexpected opaque foreign body. IMPRESSION: Reverse right shoulder total joint arthroplasty with expected postoperative changes. ACT 112: Negative or not required by law. The above report was generated using voice recognition software. It may contain grammatical, syntax or spelling errors. Electronically signed by: Saúl Rubin M.D. 11/01/2022 12:46 PM
[2022-11-02] MEDS: DOCUSATE SODIUM 100 MG CAP PO SCH (08:35)
[2022-11-02] MEDS: ASPIRIN 81 MG ECTAB PO SCH (08:35)
[2022-11-02] MEDS: POTASSIUM CHLORIDE 10 MEQ TABCR PO SCH (08:35)
[2022-11-02] MEDS ORDERED: SPIRONOLACTONE/HCTZ 25-25 PO SCH ×2 (09:00)
[2022-11-02] MEDS ORDERED: PANTOprazole 40 MG TAB PO SCH (09:00)
[2022-11-02] MEDS ORDERED: CYANOCOBALAMIN (B-12) 2,500 MCG TABLET SL SCH (09:00)
[2022-11-02] MEDS ORDERED: NON-FORMULARY MEDICATION (Multivitamin Tablet) PO SCH (09:00)
[2022-11-02] MEDS ORDERED: FEXOFENADINE HCL 180 MG TAB PO SCH (09:00)
[2022-11-02] MEDS ORDERED: ZINC SULFATE 220 MG CAPSULE PO SCH (09:00)
[2022-11-02] MEDS ORDERED: MULTIVITAMIN TAB PO SCH (09:00)
[2022-11-02] MEDS ORDERED: hydroCHLOROthiazide 25 MG TAB PO SCH (09:00)
[2022-11-02] MEDS ORDERED: SPIRONOLACTONE 25 MG TAB PO SCH ×2 (09:00)
--- NOTE | 2022-11-13 13:36 | Discharge Summary ---
Date of Service November 13, 2022 Admission HPI Per Admitting Provider 72-year-old female with past medical history significant for asthma, celiac, history of DVT, hypertension, who presents with ongoing right shoulder pain. Pain is interfering with her daily activities. She has failed conservative measures. She would like to proceed with surgical invention. Patient denies headaches, sweats, fevers, chills, double vision, blurred vision, cough, sore throat, dysphagia, chest pain, sob, wheezing, n/v/d/c, numbness, tingling, fatigue, urinary symptoms, mood disorders. ROS positive for right shoulder pain and stiffness. Admission Exam Per Admitting Provider Constitutional: well developed and well nourished; no acute distress Eyes: PERRL, conjunctivae normal, anicteric sclerae ENMT: external ear and nose normal, oropharynx normal Neck: trachea midline, no thyromegaly Respiratory: normal respiratory effort, lungs clear to auscultation Cardiovascular: RRR, no murmur, no edema Musculoskeletal: Right shoulder: Tenderness anterolateral acromion. Positive impingement signs. Positive belly press. Weakness with strength testing. 3/5 abduction, 3/5 external rotation, 3+/5 internal rotation. Abduction to 90 degrees, forward flexion to 120 degrees, external rotation 30 degrees. Skin: no rashes, warm and dry Neurologic: patellar DTR's 2+ bilat, sensation intact Psychiatric: A+Ox3, euthymic affect Principal Diagnosis Right shoulder rotator cuff arthropathy Discharge Exam Dressings are clean, dry, and intact. Sling is in place. She does have good range of motion of her right wrist and fingers with noted residual decreased sensation. Cap refills less than 2 seconds. Constitutional well developed and well nourished; no acute distress Discharge Data Allergies Allergy/AdvReac Type Severity Reaction Status Date / Time gluten Allergy Mild GI Verified 11/03/22 09:57 symptoms/celiac disease Penicillins Allergy Unknown Unknown Verified 11/03/22 09:57 amoxicillin Allergy Hives Verified 11/03/22 09:57 Sulfa (Sulfonamide Allergy Hives Verified 11/03/22 09:57 Antibiotics) ciprofloxacin AdvReac Severe Tendon Verified 11/03/22 09:57 rupture Consultations 10/27/22 11:37 Consult Hospitalist Routine Procedures Performed Operation Date: 11/01/22 09:10 Actual Procedures p Right Reversed Total Shoulder Arthroplasty(Right) - Reno Silver MD Ordered Studies 11/01/22 05:00 US - OR guided needle placemen Routine Hospital Course (1) Rotator cuff arthropathy of right shoulder: Postop day 1 status post right reverse total shoulder arthroplasty PT/OT protocols. Nonweightbearing right upper extremity. DVT prophylaxis-aspirin p.o. twice daily, SCDs, DONA hose Pain management as written. Potassium level pending. DC planning-patient is planning for home discharge when stable. Lab Results 11/01/22 11/01/22 11/02/22 Range/Units 07:10 17:35 06:07 WBC 5.68 (4.8-10.8) K/ul RBC 3.56 L (4.20-5.40) M/uL Hgb 11.6 L (12.0-16.0) g/dl Hct 34.3 L (37.0-47.0) % MCV 96.3 (80.0-100.0) fL MCH 32.6 (25.0-34.0) pg MCHC 33.8 (32.0-36.0) g/dL RDW Std Deviation 45.5 (36.4-46.3) fL RDW Coeff of Shelli 12.6 (11.5-14.5) % Plt Count 219 (130-400) K/uL MPV 9.1 L (9.4-12.4) fL Immature Gran % (Auto) 0.4 % Neut % (Auto) 61.3 % Lymph % (Auto) 26.9 % [place] % (Auto) 9.0 % Eos % (Auto) 1.2 % Baso % (Auto) 1.2 % Neut # (Auto) 3.48 (1.40-6.50) K/uL Lymph # (Auto) 1.53 (1.2-3.4) K/uL [place] # (Auto) 0.51 (0.11-0.59) K/uL Eos # (Auto) 0.07 (0-0.50) K/uL Baso # (Auto) 0.07 (0-0.2) K/uL Immature Gran # (Auto) 0.02 (0.01-0.20) K/uL Sodium 140 (136-145) mmol/L Potassium 3.3 L (3.5-5.1) mmol/L Chloride 107 (98-107) mmol/L Carbon Dioxide 26 (21-32) mmol/L Anion Gap 7 (3-11) BUN 22 (6-23) mg/dl Creatinine 0.68 (0.6-1.2) mg/dl Est Cr Clr Drug Dosing 54.9 ml/min Est GFR ( Amer) 99.9 ml/min Est GFR (Non-Af Amer) 86.2 ml/min BUN/Creatinine Ratio 32.4 H (10-20) Glucose 120 H (70-99(Fasting)) mg/dl Calcium 8.6 (8.5-10.1) mg/dl SARS-CoV-2, RNA, NAAT NEGATIVE (NEGATIVE) 11/02/22 11/02/22 Range/Units 06:07 07:42 WBC (4.8-10.8) K/ul RBC (4.20-5.40) M/uL Hgb (12.0-16.0) g/dl Hct (37.0-47.0) % MCV (80.0-100.0) fL MCH (25.0-34.0) pg MCHC (32.0-36.0) g/dL RDW Std Deviation (36.4-46.3) fL RDW Coeff of Shelli (11.5-14.5) % Plt Count (130-400) K/uL MPV (9.4-12.4) fL Immature Gran % (Auto) % Neut % (Auto) % Lymph % (Auto) % [place] % (Auto) % Eos % (Auto) % Baso % (Auto) % Neut # (Auto) (1.40-6.50) K/uL Lymph # (Auto) (1.2-3.4) K/uL [place] # (Auto) (0.11-0.59) K/uL Eos # (Auto) (0-0.50) K/uL Baso # (Auto) (0-0.2) K/uL Immature Gran # (Auto) (0.01-0.20) K/uL Sodium 140 (136-145) mmol/L Potassium TNP 3.7 (3.5-5.1) mmol/L Chloride 112 H (98-107) mmol/L Carbon Dioxide 25 (21-32) mmol/L Anion Gap 3 (3-11) BUN 19 (6-23) mg/dl Creatinine 0.53 L (0.6-1.2) mg/dl Est Cr Clr Drug Dosing 70.4 ml/min Est GFR ( Amer) 108.4 ml/min Est GFR (Non-Af Amer) 93.5 ml/min BUN/Creatinine Ratio 35.8 H (10-20) Glucose 90 (70-99(Fasting)) mg/dl Calcium 8.3 L (8.5-10.1) mg/dl SARS-CoV-2, RNA, NAAT (NEGATIVE) Total Time Total Time Spent Total Time Spent (In Minutes): 20 Discharge Plan Discharge Items Patient Disposition: Home - Self-Care Reason For Visit: POST SURGICAL CARE Discharge Diagnosis: Right Shoulder Rotator Cuff Arthropathy Activity: Per Instructions section Weightbearing: Right non-weightbearing Non-emergency contact: Surgeon Call non-emergency contact if: you have any medication questions, your temperature is above 101.5, your wound has increased redness and your wound has increased drainage Follow-up/Referrals: Janie Courtney MD [Primary Care Provider] - 11/09/22 10:30 am (APPOINTMENT WITH [facility]) Reno Silver MD [Surgeon] - (Follow up with Dr Silver or his PA in 2 weeks from the day of your surgery for your first post operative visit. ) Diet: Regular Addtl Attending Provider Instructions: ACTIVITY RECOMMENDATIONS: SELF CARE INSTRUCTIONS AFTER TOTAL SHOULDER ARTHROPLASTY REVERSE A. You may do daily exercises as taught in physical therapy while in hospital. No lifting with the operative arm. B. You are to wear your sling/immobilizer at all times EXCEPT when performing your daily exercises and for hygiene purposes. C. You may perform dry, daily dressing changes. Please keep your incision covered. You may shower 48 hours after surgery. Do not apply soap or any ointment/lotions directly over incision. Do not soak incision in bath tub/swimming pool. D. You may use ice as needed to operative shoulder. SPECIAL CARE INSTRUCTIONS: VERY IMPORTANT TO READ AND REVIEW A. There are a few signs you need to watch for after you are home. Call [facility] at [phone] if you experience any of the followin. Increased severe shoulder pain. Some pain is expected especially when you exercise. 2. Increased swelling in you shoulder or arm; pain or swelling in either upper extremity. 3. Any fluid drainage from the incision. 4. Shortness of breath or chest pain. B. Please call [facility] at [phone] if you have any questions or concerns about your operation or recovery. C. Call your physician if: 1. Temperature is greater than 101 degrees (F). 2. Pain is not relieved by prescribed pain medications. 3. Increase drainage or redness from incision. 4. Unanswered questions or concerns. FOLLOW UP VISIT: Please call [facility] at [phone] to schedule a follow up appointment with Dr. Silver or his PA in 12-14 days from your surgery date. Stand-Alone Forms: My [employer], Smoking Cessation Medications and DC Order Prescriptions: New acetaminophen [Tylenol Extra Strength] 500 mg Tablet 1,000 mg PO Q8 14 Days Qty: 84 0RF aspirin 81 mg Tablet,Delayed Release (Dr/Ec) 81 mg PO BID 30 Days Qty: 60 0RF polyethylene glycol 3350 [Miralax] 17 gram powder in packet 17 g PO DAILY PRN (Reason: constipation) Qty: 5 0RF tramadol 50 mg tablet 50 - 100 mg PO Q6H MDD 6 PRN (Reason: pain) Qty: 30 0RF Continued montelukast [Singulair] 10 mg tablet 10 mg PO PM Qty: 90 3RF potassium chloride [Klor-Con 10] 10 mEq tablet extended release 30 meq PO TID 90 Days Qty: 810 3RF Rx Instructions: 3 tablet dose baclofen 10 mg tablet 5 mg PO TID PRN (Reason: Muscle Spasm) Qty: 90 0RF true os 1 tab PO BID atorvastatin 10 mg tablet 10 mg PO QPM Qty: 90 3RF cholecalciferol (vitamin D3) 50 mcg (2,000 unit) capsule 50 mcg PO QPM niacin 500 mg Tablet 500 mg PO QPM multivitamin Tablet 1 tab PO QAM cyanocobalamin (vitamin B-12) [Vitamin B-12] 2,500 mcg Tablet, Sublingual 2,500 mcg SUBLINGUAL QAM melatonin 10 mg Tablet 10 mg PO HS doxycycline hyclate 50 mg Tablet 50 mg PO QAM Rx Instructions: take with food just not dairy latanoprost 0.005 % Drops 1 drp OPHTHALMIC (EYE) HS omeprazole 40 mg Capsule,Delayed Release(Dr/Ec) 40 mg PO QAM cinnamon bark [Cinnamon] 500 mg Capsule 500 mg PO QAM turmeric 400 mg Capsule 400 mg PO QPM fexofenadine 180 mg Tablet 180 mg PO DAILY zinc 50 mg Tablet 50 mg PO DAILY Changed spironolacton-hydrochlorothiaz 25-25 mg tablet 1 tab PO QAM 90 Days Qty: 180 3RF Discontinued spironolactone 50 mg tablet 50 mg PO QAM Qty: 90 3RF omega [id number]-fish oil [Fish Oil] 1,000 mg (120 mg-180 mg) Capsule 1 tab PO PM Glucosamine Chondroitin 550-30-1 mg Capsule 1 cap PO QPM Discharge Orders: Discharge Order (Routine); Ordered 11/02/22 Ordered By: Stan Garza Admission Data Admit Date/Time: 11/01/22 11:58 Attending Provider: Reno Silver Admit Provider: Reno Silver Primary Care Provider: Janie Courtney Other Providers: tAilio Rogers ; Robert Barroso Other Interventions: Discharge Summary Assessment (RN) Last Done: 11/02/22 11:02
== END 2022-11-02 12:34 | disposition home or self-care (01) | DRG 483 ==
LOC: ASU 07:00 → 3E 11:58 → INTOOBSV 11:58